=== PATIENT | male | born 1980 | race American Indian/Alaskan Native ===

== ENCOUNTER 2017-10-05 02:06 | Emergency (ER) | payer OTHER ==
--- NOTE | 2017-10-05 08:02 | Emergency Department Report ---
- General Chief complaint: Extremity Injury, Lower Stated complaint: RT LEG PAIN Time Seen by Provider: 10/05/17 07:49 Source: patient Mode of arrival: Ambulatory Limitations: No Limitations - History of Present Illness Initial comments: Patient reports that he was injured on the job. He states his shoes were too small and causes right leg and foot to start for 2 days now. Patient's reporting that he has infection of the bottom of his right foot and his big toe. Reports pain is 2/10 and hurts. Worse with walking and touch. He does have diabetes with neuropathy but he did not take his blood sugar today and he is on metformin. No medication taken for pain. Denies any fever. MD complaint: other (woundand pain to right foot) Onset/Timin -: days(s) Tetanus Up to Date: yes Location: R foot Severity: moderate Severity scale (0 -10): 2 Quality: other (sore) Consistency: constant Improves with: none Worsens with: palpation, movement Context: other (possible infection) Associated symptoms: athralgias Treatments Prior to Arrival: other - Related Data Previous Rx's Medication Instructions Recorded Last Taken Type Clindamycin [Clindamycin CAP] 300 mg PO Q8H 10 Days #30 cap 10/05/17 Unknown Rx traMADol [Ultram] 50 mg PO Q6HR PRN #12 tablet 10/05/17 Unknown Rx Allergies Allergy/AdvReac Type Severity Reaction Status Date / Time No Known Allergies Allergy Unverified 10/05/17 02:57 Abscess Boil HPI - HPI Chief Complaint: Extremity Injury, Lower Stated Complaint: RT LEG PAIN Time Seen by Provider: 10/05/17 07:49 Home Medications: Previous Rx's Medication Instructions Recorded Last Taken Type Clindamycin [Clindamycin CAP] 300 mg PO Q8H 10 Days #30 cap 10/05/17 Unknown Rx traMADol [Ultram] 50 mg PO Q6HR PRN #12 tablet 10/05/17 Unknown Rx Allergies/Adverse Reactions: Allergies Allergy/AdvReac Type Severity Reaction Status Date / Time No Known Allergies Allergy Unverified 10/05/17 02:57 ED Review of Systems ROS: Stated complaint: RT LEG PAIN Other details as noted in HPI Constitutional: denies: chills, fever Respiratory: denies: cough, shortness of breath, SOB with exertion, SOB at rest , wheezing Cardiovascular: denies: chest pain, palpitations, dyspnea on exertion, edema, syncope Gastrointestinal: denies: abdominal pain, nausea, diarrhea, hematemesis Genitourinary: denies: urgency, dysuria, hematuria Musculoskeletal: denies: back pain, joint swelling, arthralgia Skin: other (reports that he has ulcer to right foot and pain to right leg and foot.) Neurological: denies: headache, weakness, paresthesias ED Past Medical Hx - Past Medical History Previous Medical History?: Yes Hx Diabetes: Yes - Surgical History Past Surgical History?: No - Family History Family history: no significant - Social History Smoking Status: Current Every Day Smoker Substance Use Type: None - Medications Home Medications: Home Medications Medication Instructions Recorded Confirmed Last Taken Type Clindamycin [Clindamycin CAP] 300 mg PO Q8H 10 Days #30 cap 10/05/17 Unknown Rx traMADol [Ultram] 50 mg PO Q6HR PRN #12 tablet 10/05/17 Unknown Rx ED Physical Exam - General Limitations: No Limitations General appearance: alert, in no apparent distress - Head Head exam: Present: atraumatic, normocephalic, normal inspection - Eye Eye exam: Present: normal appearance, PERRL, EOMI Pupils: Present: normal accommodation - ENT ENT exam: Present: normal exam, normal orophraynx, mucous membranes moist - Neck Neck exam: Present: normal inspection, tenderness - Respiratory Respiratory exam: Present: normal lung sounds bilaterally. Absent: respiratory distress, chest wall tenderness - Cardiovascular Cardiovascular Exam: Present: regular rate, normal heart sounds - GI/Abdominal GI/Abdominal exam: Present: soft, normal bowel sounds. Absent: distended, tenderness, guarding, rebound, rigid - Extremities Exam Extremities exam: Present: normal inspection, full ROM, normal capillary refill , other (No cce. + 2 pulses in all extremities, no neurovascular compromise except a plantar area of foot with stage II ulcer to great toe with granulation tissue surrounded. There is also another ulcer to right first and second metatarsal area plantar aspect at stage II.). Absent: tenderness, pedal edema, joint swelling, calf tenderness - Back Exam Back exam: Present: normal inspection, full ROM, CVA tenderness (L). Absent: tenderness, muscle spasm, paraspinal tenderness, vertebral tenderness, rash noted - Neurological Exam Neurological exam: Present: alert, normal gait, reflexes normal. Absent: motor sensory deficit - Psychiatric Psychiatric exam: Present: normal affect, normal mood - Skin Skin exam: Present: warm, dry, erythema, other (ulcer). Absent: intact - Expanded Skin Exam Expanded Type of lesion: Present: other (foot ulcer stage II) Distribution of rash: LLE (right foot, plantar) Description of rash: Present: size (2 ulcers. #1 5 cm right great toe plantar aspect no drainage. No necrosis noted. Surrounding granulation tissue. #2 4 cm right foot ulcer at first and second metatarsal bone area. Surrounding granulation tissue and no necrosis noted), tenderness, erythematous, swelling, discharge (scant drainage noted). Absent: blisters, confluent, petechial, fluctuant, indurated ED Course Vital Signs 10/05/17 02:57 Temperature 99.1 F Pulse Rate 90 Respiratory 18 Rate Blood Pressure 103/70 O2 Sat by Pulse 100 Oximetry - Reevaluation(s) Reevaluation #1: 10/05/17 09:21 Patient's receive 600 mg of clindamycin by mouth. Wound care done to right foot ulcer. Area cleansed with saline and wet to dry dressing placed. Patient was sugar is 512 therefore he will be treated with normal saline IV fluid and given insulin. Plan to repeat insulin. Patient is stable and is in no distress and reported that he had a bottle of lemonade prior to blood draw. Vital signs stable afebrile. Reevaluation #2: 10/05/17 10:36 Glucose 307 after 2 L of normal saline ED Medical Decision Making - Lab Data Result diagrams: 10/05/17 08:22 10/05/17 08:22 Lab Results 10/05/17 10/05/17 Range/Units 08:22 08:22 WBC 7.8 (4.5-11.0) K/mm3 RBC 4.12 (3.65-5.03) M/mm3 Hgb 11.7 L (11.8-15.2) gm/dl Hct 35.0 L (35.5-45.6) % MCV 85 (84-94) fl MCH 28 (28-32) pg MCHC 33 (32-34) % RDW 13.4 (13.2-15.2) % Plt Count 330 (140-440) K/mm3 Lymph % (Auto) 29.7 (13.4-35.0) % [place] % (Auto) 6.7 (0.0-7.3) % Eos % (Auto) 1.9 (0.0-4.3) % Baso % (Auto) 0.3 (0.0-1.8) % Lymph # 2.3 (1.2-5.4) K/mm3 [place] # 0.5 (0.0-0.8) K/mm3 Eos # 0.2 (0.0-0.4) K/mm3 Baso # 0.0 (0.0-0.1) K/mm3 Seg Neutrophils % 61.4 (40.0-70.0) % Seg Neutrophils # 4.8 (1.8-7.7) K/mm3 Sodium 133 L (137-145) mmol/L Potassium 4.2 (3.6-5.0) mmol/L Chloride 95.0 L (98-107) mmol/L Carbon Dioxide 27 (22-30) mmol/L Anion Gap 15 mmol/L BUN 10 (9-20) mg/dL Creatinine 0.7 L (0.8-1.5) mg/dL Estimated GFR > 60 ml/min BUN/Creatinine Ratio 14 % Calcium 9.1 (8.4-10.2) mg/dL - Radiology Data Radiology results: report reviewed Pt had x-ray of right foot 3 views which was dictated by radiologist and report reviewed by myself. Please see details below. Patient: CHALINO SARGENT MR#: [id number] : 1980 Acct:[id number] Age/Sex: 37 / M ADM Date: 10/05/17 Loc: ED Attending Dr: Ordering Physician: CHAPIS ROMO Date of Service: 10/05/17 Procedure(s): XR foot 3+V RT Accession Number(s): [id number] cc: CHAPIS ROMO Fluoro Time In Minutes: RIGHT FOOT, 3 VIEWS: History: Pain, right great toe ulcer. No comparison. There is moderate soft tissue swelling of the great toe. Areas of ulceration are identified medially at the level of the great toe and first metatarsal head. There is no evidence for periostitis or bony destruction to suggest osteomyelitis. No fracture or significant joint pathology. IMPRESSION: Soft tissue swelling and ulceration consistent with a cellulitis. No findings to suggest osteomyelitis on x-ray. If further evaluation is needed, MRI with contrast or triple phase bone scan could prove useful. Transcribed By: TTR Dictated By: CHALINO COX JR, MD Electronically Authenticated By: CHALINO COX JR, MD Signed Date/Time: 10/05/17847 DD/ 5 TD/TT: 10/05/17847 - Medical Decision Making This is 37-year-old male here report that he has ulcer and his right great toe and also right foot at the bottom. He says it has been going on for 2 days. Patient is a diabetic and he said he has neuropathy and takes metformin. Pain is minimal. Denies any fever . He did not take his blood sugar today I saw and examined patient and patient was found to have stage II ulcers to the plantar aspect of right foot. He has a 4 cm ulcer to his right great toe and 5 cm ulcer to right first and second metatarsal bone area. Minimal tenderness to palpate. No odor. No drainage noted. Patient with surrounding in any relation tissue, +2 pedal pulses. No neurovascular compromise and otherwise all other physical findings were normal. X-ray of right foot 3 views dictated by radiologist and report reviewed by myself. She will cellulitis with no evidence of osteomyelitis. No acute fracture. CBC stable except for slight shift to the left , CMP stable exceptional inpatient blood glucose is 512 and he said he had just drank a soda prior to going into room and have it is lab work drawn. Urinalysis greater than 500 glucose and no ketones.. X-ray and left accident patient along with diagnosis and treatment plan and the voice understanding. She received 2 L of normal saline emergency room. Repeat blood sugar is at 307. he also was given Unasyn 3.375 g in emergency room IV for cellulitis. He was given clindamycin 600 mg by mouth. Patient instructed to keep affected area clean and dry, dressing done to right foot. Td up-to-date. Vital signs stable, afebrile patient's that he feels good and is ready to go home. I instructed him that he needs to keep a record of his blood glucose and take his medication as prescribed by his doctor. I also asked him that he needs to follow-up with private medical center or his primary care physician in 3 days. He voiced understanding. Says Omnicef condition with prescription for clindamycin, and to follow-up with also wound care for stage II ulcer, right foot Critical care attestation.: If time is entered above; I have spent that time in minutes in the direct care of this critically ill patient, excluding procedure time. ED Disposition Clinical Impression: Cellulitis of plantar aspect of foot, Arthralgia of foot, right Decubitus ulcer of foot, stage 2 Qualifiers: Laterality: right Qualified Code(s): L89.892 - Pressure ulcer of other site, stage 2 Disposition: DC-01 TO HOME OR SELFCARE Is pt being admited?: No Does the pt Need Aspirin: No Condition: Stable Instructions: Arthralgia (ED), Acute Wound Care (ED), Diabetic Foot Ulcers (ED) Additional Instructions: Follow-up with wound care Center as discussed Keep affected area clean and dry Wet-to-dry dressing as discussed Follow-up primary care physician if he do not have one he can follow-up at some outside Medical Center in 3 days Can take Ultram for pain but please do not drive or operate heavy machinery as this medication causes drowsiness Prescriptions: Clindamycin [Clindamycin CAP] 300 mg PO Q8H 10 Days #30 cap traMADol [Ultram] 50 mg PO Q6HR PRN #12 tablet PRN Reason: Pain Referrals: [facility] [Outside] - 10/08/17 PRIMARY CARE, [Primary Care Provider] - 10/08/17 [facility] [Outside] - 10/08/17 Forms: Work/School Release Form(ED)
[2017-10-05 08:50] LABS: BUN/Creatinine Ratio 14; Blood Urea Nitrogen 10 mg/dL (9-20); Calcium 9.1 mg/dL (8.4-10.2); Hemolysis Index 4
--- NOTE | 2017-10-05 08:54 | XRay Report ---
RIGHT FOOT, 3 VIEWS: History: Pain, right great toe ulcer. No comparison. There is moderate soft tissue swelling of the great toe. Areas of ulceration are identified medially at the level of the great toe and first metatarsal head. There is no evidence for periostitis or bony destruction to suggest osteomyelitis. No fracture or significant joint pathology. IMPRESSION: Soft tissue swelling and ulceration consistent with a cellulitis. No findings to suggest osteomyelitis on x-ray. If further evaluation is needed, MRI with contrast or triple phase bone scan could prove useful.
[2017-10-05 08:55] LABS: Basophils % (Auto) 0.3 % (0.0-1.8); Eosinophils # (Auto) 0.2 K/mm3 (0.0-0.4); Eosinophils % (Auto) 1.9 % (0.0-4.3); Hemoglobin 11.7 gm/dl (11.8-15.2); Lymphocytes # (Auto) 2.3 K/mm3 (1.2-5.4); Lymphocytes % (Auto) 29.7 % (13.4-35.0); Mean Corpuscular HGB Conc 33 % (32-34); Mean Corpuscular Hemoglobin 28 pg (28-32); Mean Corpuscular Volume 85 fl (84-94); Monocytes # (Auto) 0.5 K/mm3 (0.0-0.8); Monocytes % (Auto) 6.7 % (0.0-7.3); Platelet Count 330 K/mm3 (140-440); Red Blood Count 4.12 M/mm3 (3.65-5.03); Red Cell Distribution Width 13.4 % (13.2-15.2)
[2017-10-05] MEDS ORDERED: CLEOCIN PO ONE (09:02)
[2017-10-05] MEDS ORDERED: NACL 0.9% 1000 ML 1,000 ML IV ONE ×2 (09:30→10:08)
[2017-10-05] MEDS ORDERED: HumuLIN R IV ONE (09:44)
[2017-10-05] MEDS ORDERED: ZOSYN/NS 4.5GM/100ML 4.5 GM/100 ML VIAL IV SCH (10:00)
[2017-10-05 10:08] LABS: Bilirubin,Urine NEG (Negative); Blood,Urine NEG (Negative); Color,Urine Colorless (Yellow); Protein,Urine <15 mg/dL mg/dL (Negative); Urobilinogen,Urine < 2.0 mg/dL (<2.0)
[2017-10-05 11:44] VITALS: BP 122/74
== END 2017-10-05 11:43 | disposition home or self-care (01) ==
LOC: ED 02:06
DX: L03.115 Cellulitis of right lower limb (principal); E11.621 Type 2 diabetes mellitus with foot ulcer; L89.892 Pressure ulcer of other site, stage 2; M79.671 Pain in right foot; Z79.899 Other long term (current) drug therapy
CPT/HCPCS: 36415; 73630; 80048; 81001; 82962; 85025; 96374; 96375; 99284; J2543; 96361; J1815

== ENCOUNTER 2017-10-10 07:58 | Outpatient (CLI) | payer OTHER ==
[2017-10-10] MEDS ORDERED: XYLOCAINE TOPICAL 4% TP ONE ×2 (08:17→10:05)
[2017-10-10] MEDS ORDERED: SILVER NITRATE TP ONE ×2 (09:11→10:06)
== END 2017-10-10 07:59 | disposition home or self-care (01) ==
LOC: WOUND 07:58
PROVIDERS: ATTEND Surgery
DX: E11.621 Type 2 diabetes mellitus with foot ulcer (principal); L97.512 Non-pressure chronic ulcer of other part of right foot with fat layer exposed; L89.899 Pressure ulcer of other site, unspecified stage; L84 Corns and callosities; F17.210 Nicotine dependence, cigarettes, uncomplicated
CPT/HCPCS: 11042; G0463; 99215

== ENCOUNTER 2017-10-12 08:06 | Outpatient (CLI) | payer OTHER | END 2017-10-12 08:07 | disposition home or self-care (01) | LOC: VAS 08:06 | PROVIDERS: ATTEND Surgery | DX: E11.621 Type 2 diabetes mellitus with foot ulcer (principal); L97.512 Non-pressure chronic ulcer of other part of right foot with fat layer exposed; L84 Corns and callosities; F17.210 Nicotine dependence, cigarettes, uncomplicated | CPT/HCPCS: 36415; 83036 ==

== ENCOUNTER 2017-10-28 17:26 | Emergency (ER) | payer OTHER ==
[2017-10-28 19:06] VITALS: BP 126/61
--- NOTE | 2017-10-29 00:28 | Emergency Department Report ---
- General Chief Complaint: Extremity Problem,Nontraumatic Stated Complaint: RT HAND BLISTERS/PAIN Time Seen by Provider: 10/29/17 00:25 Source: patient Mode of arrival: Ambulatory Limitations: No Limitations - History of Present Illness Initial Comments: 37-year-old -[place] male presents to the emergency room for complaint of blisters to his right hand. He reports a blister on his thumb third and fourth digit. Patient reports he was at work using a high-power hose water which had heated up to extreme temperatures and obtained blisters on his hand. Patient reports the pain is minimum. Patient Tetanus UTD: Yes - Related Data Previous Rx's Medication Instructions Recorded Last Taken Type Clindamycin [Clindamycin CAP] 300 mg PO Q8H 10 Days #30 cap 10/05/17 Unknown Rx traMADol [Ultram] 50 mg PO Q6HR PRN #12 tablet 10/05/17 Unknown Rx Allergies Allergy/AdvReac Type Severity Reaction Status Date / Time No Known Allergies Allergy Unverified 10/05/17 02:57 ED Review of Systems ROS: Stated complaint: RT HAND BLISTERS/PAIN Other details as noted in HPI ED Past Medical Hx - Past Medical History Hx Diabetes: Yes - Surgical History Past Surgical History?: No - Social History Smoking Status: Current Some Day Smoker Substance Use Type: Marijuana - Medications Home Medications: Home Medications Medication Instructions Recorded Confirmed Last Taken Type Clindamycin [Clindamycin CAP] 300 mg PO Q8H 10 Days #30 cap 10/05/17 Unknown Rx traMADol [Ultram] 50 mg PO Q6HR PRN #12 tablet 10/05/17 Unknown Rx ED Physical Exam - General Limitations: No Limitations General appearance: alert, in no apparent distress - Head Head exam: Present: atraumatic, normocephalic - Neurological Exam Neurological exam: Present: alert, oriented X3 - Psychiatric Psychiatric exam: Present: normal affect, normal mood - Expanded Skin Exam Expanded Description of rash: Present: blisters (right hand thumb, 4th and 5th digit) ED Course Vital Signs 10/28/17 10/29/17 19:01 01:10 Temperature 97.8 F Pulse Rate 83 60 Respiratory 16 16 Rate Blood Pressure 126/61 O2 Sat by Pulse 100 99 Oximetry ED Medical Decision Making - Medical Decision Making Patient has been evaluated by this provider fast track. Discussed patient to keep blisters intact. Informed patient he can take [id number] Tylenol or Motrin for pain management if he has any. Referral patient to [facility] for evaluation. patient verbalized understanding Diagnosis with blisters on right hand Critical care attestation.: If time is entered above; I have spent that time in minutes in the direct care of this critically ill patient, excluding procedure time. ED Disposition Clinical Impression: Blister of hand Qualifiers: Encounter type: initial encounter Laterality: right Qualified Code(s): S60.521A - Blister (nonthermal) of right hand, initial encounter Disposition: TO HOME OR SELFCARE Is pt being admited?: No Does the pt Need Aspirin: No Condition: Stable Instructions: Blister (ED) Additional Instructions: Please is take [id number] pain medication as needed. Please keep your blisters intact as much as possible. Follow-up with [facility] as needed. Referrals: PRIMARY CARE, [Primary Care Provider] - 3-5 Days [facility] [Outside] - 3-5 Days Forms: Work/School Release Form(ED)
== END 2017-10-29 01:10 | disposition home or self-care (01) ==
LOC: ED 17:26
DX: S60.521A Blister (nonthermal) of right hand, initial encounter (principal); E11.9 Type 2 diabetes mellitus without complications; F17.200 Nicotine dependence, unspecified, uncomplicated; X11.8XXA Contact with other hot tap-water, initial encounter; Y93.89 Activity, other specified; Y92.89 Other specified places as the place of occurrence of the external cause; Y99.8 Other external cause status
CPT/HCPCS: 99282

== ENCOUNTER 2020-05-03 12:48 | Emergency (ER) | payer SELFPAY ==
[2020-05-03] MEDS ORDERED: IBUPROFEN 600 MG TAB PO ONE (13:24)
--- NOTE | 2020-05-03 13:25 | Emergency Department Report ---
ED Headache HPI - General Chief Complaint: Headache Stated Complaint: HEADACHE Time Seen by Provider: 05/03/20 13:17 Source: patient Exam Limitations: no limitations - History of Present Illness Initial Comments: 40-year-old male with a past medical history of diabetes and tobacco use presents to the ER today with complaints of headache. Patient states that headache is mainly on the left side of his head. He describes as a pressure pain. He states that it started about 2 months ago, is states that has been off and on but in the past couple weeks he has noticed that it is been more constant. He denies any head injury when he first started. He states that he has been taking Tylenol extra strength which does not seem to relieve his pain but it comes back. He is unable to say what makes it worse. He reports mild nasal congestion and "a little" blurry vision but he denies any dizziness, speech changes, neck pain, chest pain, shortness of breath, focal weakness, num bness, tingling or any other symptoms at this time. His blood pressure was noted to be elevated at triage but he denies any history of hypertension. Timing/Duration: other (2 mthd) Allergies/Adverse Reactions: Allergies No Known Allergies Allergy (Unverified 10/05/17 02:57) Home Medications: Ambulatory Orders Clindamycin [Clindamycin CAP] 300 mg PO Q8H 10 Days #30 cap 10/05/17 traMADoL [Ultram] 50 mg PO Q6HR PRN #12 tablet 10/05/17 Amlodipine Besylate [Norvasc] 5 mg PO DAILY #30 tablet 05/03/20 ED Review of Systems ROS: Stated complaint: HEADACHE Other details as noted in HPI Comment: All other systems reviewed and negative Constitutional: denies: chills, fever Eyes: denies: eye pain, eye discharge, vision change ENT: congestion Cardiovascular: denies: chest pain, palpitations Endocrine: no symptoms reported Gastrointestinal: denies: abdominal pain, nausea, diarrhea Genitourinary: denies: urgency, dysuria, frequency, hematuria, discharge, testicular pain, testicular mass Musculoskeletal: denies: back pain, joint swelling, arthralgia Skin: denies: rash, lesions, change in color, change in hair/nails Neurological: headache. denies: weakness, numbness, paresthesias, confusion, a bnormal gait Psychiatric: denies: anxiety, depression Hematological/Lymphatic: denies: easy bleeding, easy bruising ED Past Medical Hx - Past Medical History Previous Medical History?: Yes Hx Diabetes: Yes - Surgical History Past Surgical History?: No - Social History Smoking Status: Current Every Day Smoker Substance Use Type: None - Medications Home Medications: Home Medications Medication Instructions Recorded Confirmed Last Taken Type Clindamycin [Clindamycin CAP] 300 mg PO Q8H 10 Days #30 cap 10/05/17 Unknown Rx traMADoL [Ultram] 50 mg PO Q6HR PRN #12 tablet 10/05/17 Unknown Rx Amlodipine Besylate [Norvasc] 5 mg PO DAILY #30 tablet 05/03/20 Unknown Rx ED Physical Exam - General Limitations: No Limitations General appearance: alert, in no apparent distress - Head Head exam: Present: atraumatic, normocephalic, normal inspection - Eye Eye exam: Present: normal appearance, PERRL, EOMI Pupils: Present: normal accommodation - ENT ENT exam: Present: normal exam, mucous membranes moist - Neck Neck exam: Present: normal inspection, full ROM - Respiratory Respiratory exam: Present: normal lung sounds bilaterally. Absent: respiratory distress - Cardiovascular Cardiovascular Exam: Present: regular rate, normal rhythm, normal heart sounds - GI/Abdominal GI/Abdominal exam: Present: soft. Absent: distended, tenderness, guarding, rebound - Neurological Exam Neurological exam: Present: alert, oriented X3, CN II-XII intact, normal gait - Psychiatric Psychiatric exam: Present: normal affect, normal mood - Skin Skin exam: Present: intact ED Course Vital Signs 05/03/20 05/03/20 12:50 15:32 Temperature 98.8 F Pulse Rate 91 H 77 Respiratory 14 17 Rate Blood Pressure 164/97 Blood Pressure 161/88 [Right] O2 Sat by Pulse 100 100 Oximetry ED Medical Decision Making - Lab Data Result diagrams: 05/03/20 13:30 05/03/20 13:30 - Radiology Data Radiology results: report reviewed Patient: AVILA SARGENT MR#: Castillo [id number] : 1980 Acct:[id number] Age/Sex: 40 / M ADM Date: 05/03/20 Loc: ED Attending Dr: Ordering Physician: KRYSTA MCGINNIS Date of Service: 05/03/20 Procedure(s): CT head/brain wo con Accession Number(s): [id number] cc: KRYSTA MCGINNIS CT HEAD WITHOUT CONTRAST INDICATION / CLINICAL INFORMATION: Left-sided headache for 2 months. TECHNIQUE: Axial imaging performed from the skull apex through the skull base without the use of contrast. Sagittal and coronal reformatted images. All CT scans at this loca tion are performed using CT dose reduction for ALARA by means of automated exposure control. COMPARISON: None available. FINDINGS: CEREBRAL PARENCHYMA: No significant abnormality. No acute territorial infarct. HEMORRHAGE: None. EXTRA-AXIAL SPACES: Normal in size and morphology for the patient's age. VENTRICULAR SYSTEM: Normal in size and morphology for the patient's age. MIDLINE SHIFT OR HERNIATION: None. CEREBELLUM / BRAINSTEM: No significant abnormality. CALVARIUM: No significant abnormality. ORBITS: Normal as visualized. PARANASAL SINUSES / MASTOID AIR CELLS: Normal as visualized. SOFT TISSUES of HEAD: No significant abnormality. ADDITIONAL FINDINGS: None. IMPRESSION: No acute intracranial abnormality. Signer Name: Avila Brewer Jr, MD Signed: 05/03/2020 2:00 PM Workstation Name: [id number] Transcribed By: TTR Dictated By: AVILA BREWER JR, MD Electronically Authenticated By: AVILA BREWER JR, MD Signed Date/Time: 05/03/20 1400 DD/ 1358 TD/TT: - Medical Decision Making Labs reviewed, patient blood sugar is elevated at 308 but otherwise labs are normal, no evidence of DKA. Patient does admit that he has not taken any of his diabetic medications today. Head CT negative for anything acute. Patient currently resting comfortably, is not in any acute distress. He is alert, talkative, interactive, with normal mental status and is neurologically intact with a normal gait in the ER. The history, exam, diagnostic testing and the patient's current condition does not suggest meningitis, stroke, sepsis, subarachnoid hemorrhage, intracranial bleeding, encephalitis, temporal arteritis or other significant pathology to warrant further testing, continued ED treatment, admission, neurological consultation or other specialist evaluation at this point. Repeat blood pressure is still elevated at 160 systolic. Remaining vitals normal. Discussed lab results and CT results with patient. Discussed concern for HTN with patient and that will start on low dose norvasc but it is important that he folows up with PCP listed on d/c instructions for continued monitoring of his blood pressure. Patient expressed understanding of instructions and agreed with plan. Patient stable at time of d/c. Critical care attestation.: If time is entered above; I have spent that time in minutes in the direct care of this critically ill patient, excluding procedure time. ED Disposition Clinical Impression: Headache, Elevated blood pressure reading Disposition: TO HOME OR SELFCARE Is pt being admited?: No Does the pt Need Aspirin: No Condition: Stable Instructions: General Headache Without Cause, Hypertension, Adult Additional Instructions: Take the Norvasc as prescribed. Check your blood pressure before your medication and about 1-2 hrs after taking your meds. Keep log of your blood pressure readings. You can take the Tylenol and/or ibuprofen as needed for pain. It is important that you follow-up with the primary care doctor as listed on your discharge instructions for continued monitoring of your blood pressure and your blood sugar. Return to the ER if your symptoms changes or worsens in any way. Prescriptions: Amlodipine Besylate [Norvasc] 5 mg PO DAILY #30 tablet Referrals: JUDY BLUE MD [Staff Physician] - 3-5 Days Forms: Work/School Release Form(ED) Time of Disposition: 16:04
--- NOTE | 2020-05-03 14:04 | Cat Scan Report ---
CT HEAD WITHOUT CONTRAST INDICATION / CLINICAL INFORMATION: Left-sided headache for 2 months. TECHNIQUE: Axial imaging performed from the skull apex through the skull base without the use of cont rast. Sagittal and coronal reformatted images. All CT scans at this location are performed using CT dose reduction for ALARA by means of automated exposure control. COMPARISON: None available. FINDINGS: CEREBRAL PARENCHYMA: No significant abnormality. No acute territorial infarct. HEMORRHAGE: None. EXTRA-AXIAL SPACES: Normal in size and morphology for the patient's age. VENTRICULAR SYSTEM: Normal in size and morphology for the patient's age. MIDLINE SHIFT OR HERNIATION: None. CEREBELLUM / BRAINSTEM: No significant abnormality. CALVARIUM: No significant abnormality. ORBITS: Normal as visualized. PARANASAL SINUSES / MASTOID AIR CELLS: Normal as visualized. SOFT TISSUES of HEAD: No significant abnormality. ADDITIONAL FINDINGS: None. IMPRESSION: No acute intracranial abnormality. Signer Name: Avila Brewer Jr, MD Signed: 05/03/2020 2:00 PM Workstation Name: [id number]
[2020-05-03 14:11] LABS: Basophils % (Auto) 0.4 % (0.0-1.8); Eosinophils # (Auto) 0.1 K/mm3 (0.0-0.4); Hemoglobin 10.4 gm/dl (11.8-15.2); Lymphocytes # (Auto) 1.5 K/mm3 (1.2-5.4); Lymphocytes % (Auto) 24.3 % (13.4-35.0); Mean Corpuscular HGB Conc 34 % (32-34); Mean Corpuscular Volume 83 fl (84-94); Monocytes # (Auto) 0.4 K/mm3 (0.0-0.8); Monocytes % (Auto) 6.8 % (0.0-7.3); Platelet Count 290 K/mm3 (140-440); Red Blood Count 3.74 M/mm3 (3.65-5.03); Red Cell Distribution Width 13.5 % (13.2-15.2)
[2020-05-03 14:37] LABS: Alanine Aminotransferase 20 units/L (7-56); Albumin 3.3 g/dL (3.9-5); BUN/Creatinine Ratio 14; Blood Urea Nitrogen 15 mg/dL (9-20); Calcium 8.6 mg/dL (8.4-10.2); Hemolysis Index 30
[2020-05-03 15:33] VITALS: BP 161/88
== END 2020-05-03 16:17 | disposition home or self-care (01) ==
LOC: ED 12:48
DX: R03.0 Elevated blood-pressure reading, without diagnosis of hypertension (principal); R51.9 Headache, unspecified; E11.9 Type 2 diabetes mellitus without complications; F17.200 Nicotine dependence, unspecified, uncomplicated; Z79.899 Other long term (current) drug therapy
CPT/HCPCS: 36415; 70450; 80053; 85025

== ENCOUNTER 2020-07-08 17:39 | Inpatient (IN) | payer OTHER ==
[2020-07-08 20:52] LABS: Basophils % (Auto) 0.3 % (0.0-1.8); Eosinophils # (Auto) 0.2 K/mm3 (0.0-0.4); Eosinophils % (Auto) 1.7 % (0.0-4.3); Hematocrit 28.5 % (35.5-45.6); Hemoglobin 9.5 gm/dl (11.8-15.2); Lymphocytes # (Auto) 1.8 K/mm3 (1.2-5.4); Lymphocytes % (Auto) 13.6 % (13.4-35.0); Mean Corpuscular HGB Conc 33 % (32-34); Mean Corpuscular Volume 84 fl (84-94); Monocytes # (Auto) 1.1 K/mm3 (0.0-0.8); Monocytes % (Auto) 8.3 % (0.0-7.3); Platelet Count 559 K/mm3 (140-440); Red Blood Count 3.41 M/mm3 (3.65-5.03)
[2020-07-08 21:01] LABS: Alanine Aminotransferase 12 units/L (7-56); BUN/Creatinine Ratio 12; Blood Urea Nitrogen 15 mg/dL (9-20); Hemolysis Index 10
--- NOTE | 2020-07-08 21:05 | XRay Report ---
HISTORY:Diabetic foot ulcer - R/O Osteomyelitis COMPARISON: None. TECHNIQUE: AP lateral and obliques views were obtained FINDINGS: Bones: No fracture or dislocation. Joint spaces: Maintained. Soft tissues: No significant abnormality. Additional findings: None. IMPRESSION: 1. No significant abnormality. If osteomyelitis is a concern recommend MR for further evaluation Signer Name: Patel Adrian MD Signed: 07/08/2020 9:01 PM Workstation Name: [id number]
[2020-07-08] MEDS ORDERED: SODIUM CHLORIDE 0.9% 1000 ML 1,000 ML IV ONE ×2 (22:03)
[2020-07-08] MEDS ORDERED: PIPERACIL/TAZOBACTA 4.5/NS 100 4.5 GM/100 ML VIAL IV ONE (22:04)
[2020-07-08] MEDS ORDERED: HYDROcodone/ACETAMINOPHEN 5-325 MG TAB PO ONE (22:05)
[2020-07-08] MEDS ORDERED: ONDANSETRON 4 MG ODT TAB PO ONE (22:05)
--- NOTE | 2020-07-09 03:32 | Event Note ---
ED Screening Note Date of service: 07/08/20 Time: 20:20 ED Screening Note: Patient is a 40-year-old -Mexican male with a history of [id number]-muqwwqcee diabetes, hypertension and hyperlipidemia and was noncompliant with his medications presents to the ED with complaint of acute onset persistent severe right foot pain due to ulcerated wound with thick purulent discharge for the 1 week, worse in the last 2 days. Patient states that he has not been able to wear shoes or bear weight on the right foot because of worsening pain and worsening purulent discharge from the right foot ulcer. Patient states that he does not take his diabetes medications as he should and also states that he does not remember when he last checked his blood sugar. Patient denies fall, traumatic injury, nausea, vomiting, fever, chills, numbness and tingling or weakness of right foot or right leg, dizziness, abdominal pain, back pain, chest pain or shortness of breath. This initial assessment/diagnostic orders/clinical plan/treatment(s) is/are subject to change based on patients health status, clinical progression and re- assessment by fellow clinical providers in the ED. Further treatment and workup at subsequent clinical providers discretion. Patient/guardian urged not to elope from the ED as their condition may be serious if not clinically assessed and managed. Initial orders include: CBC, CMP, foot x-ray, lactic acid, 2 L of normal saline IV; Zosyn 4.5 g IV
[2020-07-09] MEDS ORDERED: INSULIN REGULAR, HUMAN 100 UNITS/1 ML IV ONE (04:30)
--- NOTE | 2020-07-09 04:30 | Emergency Department Report ---
ED General Adult HPI - General Chief complaint: Extremity Injury, Lower Stated complaint: RT FOOT SWOLLEN/LEAKING POST/BLOOD PUI?: No Time Seen by Provider: 07/09/20 04:01 Source: patient Mode of arrival: Stretcher Limitations: No Limitations - History of Present Illness Initial comments: Patient is a 40-year-old male who presents emergency room with complaints of right lateral foot wound has been going on for 2 days. Patient states the wound is worsening. Patient states he is having pain. Patient states he has a history of diabetes hypertension. Patient explains to be taking Metformin and insulin. Patient patient is noncompliant with his medication. He states he does not have a primary care. Patient states he has had ulcers in the past secondary to his diabetes. Patient states he has a history. Patient states the skin is starting to slough off his dorsal right foot and has a purulent discharge. Patient denies fever and chills. Patient states he does not have neuropathy. Patient denies recent travel. Patient denies recent international travel. Patient denies exposure to the novel coronavirus. Patient denies sick contacts. Patient denies fever and chills. Patient denies cough. Patient denies d iarrhea. Patient denies coming in contact with anybody with symptoms of the novel coronavirus. -: Sudden Severity scale (0 -10): 0 Consistency: constant Improves with: rest Worsens with: movement Associated Symptoms: denies: confusion, chest pain, cough, diaphoresis, fever/chills, headaches, loss of appetite, malaise, nausea/vomiting, rash, seiz ure, shortness of breath, syncope, weakness Treatments Prior to Arrival: none - Related Data Previous Rx's Medication Instructions Recorded Last Taken Type Clindamycin [Clindamycin CAP] 300 mg PO Q8H 10 Days #30 cap 10/05/17 Unknown Rx traMADoL [Ultram] 50 mg PO Q6HR PRN #12 tablet 10/05/17 Unknown Rx Amlodipine Besylate [Norvasc] 5 mg PO DAILY #30 tablet 05/03/20 Unknown Rx Allergies Allergy/AdvReac Type Severity Reaction Status Date / Time No Known Allergies Allergy Unverified 10/05/17 02:57 ED Review of Systems ROS: Stated complaint: RT FOOT SWOLLEN/LEAKING POST/BLOOD Other details as noted in HPI Constitutional: denies: chills, fever Eyes: denies: eye pain, eye discharge, vision change ENT: denies: ear pain, throat pain Respiratory: denies: cough, shortness of breath, wheezing Cardiovascular: denies: chest pain, palpitations Endocrine: no symptoms reported Gastrointestinal: denies: abdominal pain, nausea, diarrhea Genitourinary: denies: urgency, dysuria Musculoskeletal: denies: back pain, joint swelling, arthralgia Skin: as per HPI, lesions. denies: rash Neurological: denies: headache, weakness, paresthesias Psychiatric: denies: anxiety, depression Hematological/Lymphatic: denies: easy bleeding, easy bruising ED Past Medical Hx - Past Medical History Previous Medical History?: Yes Hx Hypertension: Yes Hx Diabetes: Yes - Surgical History Past Surgical History?: No - Family History Family history: no significant - Social History Smoking Status: Current Every Day Smoker Substance Use Type: None - Medications Home Medications: Home Medications Medication Instructions Recorded Confirmed Last Taken Type Clindamycin [Clindamycin CAP] 300 mg PO Q8H 10 Days #30 cap 10/05/17 Unknown Rx traMADoL [Ultram] 50 mg PO Q6HR PRN #12 tablet 10/05/17 Unknown Rx Amlodipine Besylate [Norvasc] 5 mg PO DAILY #30 tablet 05/03/20 Unknown Rx ED Physical Exam - General Limitations: No Limitations General appearance: alert, in no apparent distress - Head Head exam: Present: atraumatic, normocephalic - Eye Eye exam: Present: normal appearance - ENT ENT exam: Present: mucous membranes moist - Neck Neck exam: Present: normal inspection - Respiratory Respiratory exam: Present: normal lung sounds bilaterally. Absent: respiratory distress - Cardiovascular Cardiovascular Exam: Present: regular rate, normal rhythm. Absent: systolic murmur, diastolic murmur, rubs, gallop - GI/Abdominal GI/Abdominal exam: Present: soft, normal bowel sounds - Rectal Rectal exam: Present: deferred - Extremities Exam Extremities exam: Present: other (Large dorsal diabetic foot ulcer noted with purulent discharge and redness at site.) - Back Exam Back exam: Present: normal inspection - Neurological Exam Neurological exam: Present: alert, oriented X3 - Psychiatric Psychiatric exam: Present: normal affect, normal mood - Skin Skin exam: Present: warm, dry, normal color, erythema (To the right lateral f oot.), other (Open diabetic ulcer right lateral foot. Purulent discharge and redness.). Absent: rash ED Course Vital Signs 07/08/20 19:54 Temperature 99 F Pulse Rate 85 Blood Pressure 185/81 [Left] - Reevaluation(s) Reevaluation #1: I discussed all results with patient. I discussed plan of care with patient. Patient agrees with plan of care and admission. Patient to be admitted to the hospitalist service. 07/09/20 04:35 - Consultations Consultation #1: Hospitalist consulted for admission. Hospitalist to admit patient. 07/09/20 04:35 ED Medical Decision Making - Lab Data Result diagrams: 07/08/20 20:17 07/08/20 20:17 - Radiology Data Radiology results: report reviewed, image reviewed HISTORY:Diabetic foot ulcer - R/O Osteomyelitis COMPARISON: None. TECHNIQUE: AP lateral and obliques views were obtained FINDINGS: Bones: No fracture or dislocation. Joint spaces: Maintained. Soft tissues: No significant abnormality. Additional findings: None. IMPRESSION: 1. No significant abnormality. If osteomyelitis is a concern recommend MR for further evaluation - Medical Decision Making Patient is a 40-year-old male presents emergency room with complaints of a right foot ulcer that is draining pus and is red. Patient's evaluation is shows a large foot ulcer with purulent discharge and erythema around the wound. Patient had labs done which were essentially markable except for anemia, elevated WBC and elevated blood sugar. Patient given insulin for blood sugar.. Patient give n IV fluids and broad-spectrum antibiotics. Patient x-ray which shows no acute findings. Critical care time documented due to the multiple reassessments, prolonged time at the bedside, interpretation of diagnostics and labs. - Differential Diagnosis Diabetic foot ulcer, foot infection, Critical Care Time: Yes Critical care time in (mins) excluding proc time.: 35 Critical care attestation.: If time is entered above; I have spent that time in minutes in the direct care of this critically ill patient, excluding procedure time. Critical Care Time: 35 minutes ED Disposition Clinical Impression: Diabetic foot infection DM foot ulcer Qualifiers: Diabetic foot ulcer location: midfoot Diabetes mellitus type: type 2 Laterality: right Non-pressure ulcer stage: unspecified non-pressure ulcer stage Qualified Code(s): E11.621 - Type 2 diabetes mellitus with foot ulcer; L97.419 - Non-pressure chronic ulcer of right heel and midfoot with unspecified severity Wound, open, foot Qualifiers: Encounter type: initial encounter Laterality: right Qualified Code(s): S91.301A - Unspecified open wound, right foot, initial encounter Anemia Qualifiers: Anemia type: unspecified type Qualified Code(s): D64.9 - Anemia, unspecified Disposition: DC09 OP ADMIT IP TO THIS HOSP Is pt being admited?: Yes Does the pt Need Aspirin: No Condition: Critical Instructions: Diabetes Mellitus Type 2 in Adults (ED) Time of Disposition: 04:45
[2020-07-09] MEDS ORDERED: SODIUM CHLORIDE 0.9% 1000 ML 1,000 ML IV ONE (04:42)
[2020-07-09] MEDS ORDERED: PIPERACIL/TAZOBACTA 4.5/NS 100 4.5 GM/100 ML VIAL IV ONE (04:42)
[2020-07-09] MEDS ORDERED: ACETAMINOPHEN 325 MG TAB PO PRN (05:13)
[2020-07-09] MEDS ORDERED: ONDANSETRON 4 MG/2 ML INJ IV PRN (05:13)
[2020-07-09] MEDS ORDERED: DEXTROSE 50% IN WATER (25GM) 50 ML SYRINGE IV PRN (05:13)
--- NOTE | 2020-07-09 05:21 | History and Physical Report ---
History of Present Illness Date of examination: 07/09/20 Date of admission: 07/09/20 04:32 Chief complaint: Right foot diabetic ulcer History of present illness: 40-year-old male with past medical history of diabetes and high blood pressure was brought to the emergency room with complaints of right lateral foot wound has been going on for 4 weeks. patient states the wound is worsening last 2 days. Patient states he is having pain. Patient states he has a history of diabetes hypertension. Patient explains to be taking Metformin and insulin. Patient patient is noncompliant with his medication. He states he does not have a primary care. Patient states he has had ulcers in the past secondary to his diabetes. Patient states he has a history. Patient states the skin is starting to slough off his dorsal right foot and has a purulent discharge. Patient denies fever and chills. Patient states he does not have neuropathy. In the emergency room patient is found to have diabetic foot ulcer Past History Past Medical History: diabetes, hypertension Medications and Allergies Allergies Allergy/AdvReac Type Severity Reaction Status Date / Time No Known Allergies Allergy Unverified 10/05/17 02:57 Home Medications Medication Instructions Recorded Confirmed Last Taken Type Clindamycin [Clindamycin CAP] 300 mg PO Q8H 10 Days #30 cap 10/05/17 Unknown Rx traMADoL [Ultram] 50 mg PO Q6HR PRN #12 tablet 10/05/17 Unknown Rx Amlodipine Besylate [Norvasc] 5 mg PO DAILY #30 tablet 05/03/20 Unknown Rx Active Meds: Active Medications Sodium Chloride (Nacl 0.9% 1000 Ml) 1,000 mls @ 999 mls/hr IV BOLUS ONE Stop: 07/09/20 05:42 Last Admin: 07/09/20 05:08 Dose: 999 mls/hr Documented by: Review of Systems Integumentary: sores, wounds, other (Diabetic foot ulcer) Exam - Constitutional Vitals: Temp Pulse Resp BP Pulse Ox 99 F 85 185/81 07/08/20 19:54 07/08/20 19:54 07/08/20 19:54 General appearance: Present: no acute distress, well-nourished - EENT Eyes: Present: PERRL ENT: hearing intact, clear oral mucosa - Neck Neck: Present: supple, normal ROM - Respiratory Respiratory effort: normal Respiratory: bilateral: CTA - Cardiovascular Heart Sounds: Present: S1 & S2. Absent: rub, click - Extremities Extremities: pulses symmetrical, No edema Extremity abnormal: edema, ulceration, erythema, other (Diabetic foot ulcer) Peripheral Pulses: within normal limits - Abdominal General gastrointestinal: Present: soft, non-tender, non-distended, normal bowel sounds Male genitourinary: Present: normal - Integumentary Integumentary: Present: clear, warm, dry - Musculoskeletal Musculoskeletal: gait normal, strength equal bilaterally - Psychiatric Psychiatric: appropriate mood/affect, intact judgment & insight - Neurologic Neurologic: CNII-XII intact, moves all extremities Results - Labs CBC & Chem 7: 07/08/20 20:17 07/08/20 20:17 Labs: Laboratory Last Values WBC 13.5 K/mm3 (4.5-11.0) H 07/08/20 20:17 RBC 3.41 M/mm3 (3.65-5.03) L 07/08/20 20:17 Hgb 9.5 gm/dl (11.8-15.2) L 07/08/20 20:17 Hct 28.5 % (35.5-45.6) L 07/08/20 20:17 MCV 84 fl (84-94) 07/08/20 20:17 MCH 28 pg (28-32) 07/08/20 20:17 MCHC 33 % (32-34) 07/08/20 20:17 RDW 13.0 % (13.2-15.2) L 07/08/20 20:17 Plt Count 559 K/mm3 (140-440) H 07/08/20 20:17 Lymph % (Auto) 13.6 % (13.4-35.0) 07/08/20 20:17 [place] % (Auto) 8.3 % (0.0-7.3) H 07/08/20 20:17 Eos % (Auto) 1.7 % (0.0-4.3) 07/08/20 20:17 Baso % (Auto) 0.3 % (0.0-1.8) 07/08/20 20:17 Lymph # (Auto) 1.8 K/mm3 (1.2-5.4) 07/08/20 20:17 [place] # (Auto) 1.1 K/mm3 (0.0-0.8) H 07/08/20 20:17 Eos # (Auto) 0.2 K/mm3 (0.0-0.4) 07/08/20 20:17 Baso # (Auto) 0.0 K/mm3 (0.0-0.1) 07/08/20 20:17 Seg Neutrophils % 76.1 % (40.0-70.0) H 07/08/20 20:17 Seg Neutrophils # 10.3 K/mm3 (1.8-7.7) H 07/08/20 20:17 Sodium 131 mmol/L (137-145) L 07/08/20 20:17 Potassium 3.9 mmol/L (3.6-5.0) 07/08/20 20:17 Chloride 91.7 mmol/L (98-107) L 07/08/20 20:17 Carbon Dioxide 27 mmol/L (22-30) 07/08/20 20:17 Anion Gap 16 mmol/L 07/08/20 20:17 BUN 15 mg/dL (9-20) 07/08/20 20:17 Creatinine 1.3 mg/dL (0.8-1.3) 07/08/20 20:17 Estimated GFR > 60 ml/min 07/08/20 20:17 BUN/Creatinine Ratio 12 % 07/08/20 20:17 Glucose 430 mg/dL (75-100) H 07/08/20 20:17 Lactic Acid 1.20 mmol/L (0.7-2.0) 07/08/20 20:17 Calcium 9.0 mg/dL (8.4-10.2) 07/08/20 20:17 Total Bilirubin 0.20 mg/dL (0.1-1.2) 07/08/20 20:17 AST 12 units/L (5-40) 07/08/20 20:17 ALT 12 units/L (7-56) 07/08/20 20:17 Alkaline Phosphatase 96 units/L (35-129) 07/08/20 20:17 Total Protein 7.7 g/dL (6.3-8.2) 07/08/20 20:17 Albumin 3.0 g/dL (3.9-5) L 07/08/20 20:17 Albumin/Globulin Ratio 0.6 % 07/08/20 20:17 Assessment and Plan VTE prophylaxis?: Chemical Plan of care discussed with patient/family: Yes - Patient Problems (1) DM foot ulcer Current Visit: Yes Status: Acute Qualifiers: Diabetic foot ulcer location: midfoot Diabetes mellitus type: type 2 Laterality: right Non-pressure ulcer stage: unspecified non-pressure ulcer stage Qualified Code(s): E11.621 - Type 2 diabetes mellitus with foot ulcer; L 97.419 - Non-pressure chronic ulcer of right heel and midfoot with unspecified severity Plan to address problem: Admit the patient to the medical floor. 1800 kcal ADA diet. Zosyn 4.5 g IV every 8 hours. Vancomycin 1 g IV every 12 hours. Wound care evaluation. We also consult surgery for further evaluation and treatment and possible I&D. Blood culture wound culture. CBC BMP in the morning (2) Diabetes 1.5, managed as type 2 Current Visit: Yes Status: Acute Plan to address problem: 1800 kcal ADA diet. We will put the patient on insulin sliding scale Humalog coverage before meals and at bedtime moderate dose. We will recheck hemoglobin A1c and BMP in the morning. We also consult diabetic education (3) Hypertension Current Visit: Yes Status: Acute Plan to address problem: Hydralazine 10 mg IV every 6 hours as needed. We will monitor the blood pressure closely (4) DVT prophylaxis Current Visit: Yes Status: Acute Plan to address problem: Heparin 5000 units subcu every 8 hours. Pepcid 20 mg p.o. twice daily. Patient is a full code
[2020-07-09] MEDS: VANCOMYCIN/NS 1 GM/250 ML 1 GM/250 ML BAG IV SCH ×2 (06:31→17:16)
[2020-07-09] MEDS: HEPARIN 5,000 UNIT/1 ML VIAL SUB-Q SCH ×3 (06:32→23:09)
[2020-07-09] MEDS: INSULIN LISPRO 100 UNIT/ML SUB-Q SCH ×4 (08:47→23:09)
[2020-07-09 09:48] LABS: Chol/HDL Ratio 5.41 %
[2020-07-09] MEDS ORDERED: FAMOTIDINE 10 MG TAB PO SCH (10:00)
--- NOTE | 2020-07-09 11:59 | Event Note ---
Date: 07/09/20 Brief progress note Patient seen and examined This is the second IMS visit of the day He is alert and oriented and admits to noncompliance with medications and states that he has not taken medications for his diabetes or hypertension recently Lab results reviewed A1c 11.7 Start on amlodipine and low-dose MICHAELLE inhibitor this morning due to poorly controlled hypertension Continue IV antibiotics with Unasyn and vancomycin Dressing on the right foot
[2020-07-09] MEDS: amLODIPine 5 MG TAB PO SCH (12:27)
[2020-07-09] MEDS: LISINOPRIL 5 MG TAB PO SCH (12:27)
[2020-07-09] MEDS: glipiZIDE 5 MG TAB PO SCH ×2 (12:27→17:17)
[2020-07-09] MEDS: AMPICILLIN/SULBACTA 3GM/100ML 3 GM/100 ML BAG IV SCH ×3 (12:28→23:09)
[2020-07-09] MEDS: PANTOPRAZOLE 40 MG TAB PO SCH (12:34)
[2020-07-09] MEDS ORDERED: PIPERACIL/TAZOBACTA 4.5/NS 100 4.5 GM/100 ML VIAL IV SCH (13:00)
[2020-07-09] MEDS: metFORMIN 500 MG TAB PO SCH (17:17)
[2020-07-09] MEDS: hydrALAZINE 20 MG/1 ML INJ IV PRN (17:17)
--- NOTE | 2020-07-09 17:58 | Consultation ---
History of Present Illness Consult date: 07/09/20 Chief complaint: Diabetic right foot wound/infection - History of present illness History of present illness: 40 yo diabetic male with right foot wound/infection. Doesn't know what his last A1c was. Smokes 8 cigars per day. Past History Past Medical History: diabetes, hypertension Medications and Allergies Allergies Allergy/AdvReac Type Severity Reaction Status Date / Time No Known Allergies Allergy Unverified 10/05/17 02:57 Home Medications Medication Instructions Recorded Confirmed Last Taken Type Clindamycin [Clindamycin CAP] 300 mg PO Q8H 10 Days #30 cap 10/05/17 Unknown Rx traMADoL [Ultram] 50 mg PO Q6HR PRN #12 tablet 10/05/17 Unknown Rx Amlodipine Besylate [Norvasc] 5 mg PO DAILY #30 tablet 05/03/20 Unknown Rx Active Meds: Active Medications Acetaminophen (Acetaminophen 325 Mg Tab) 650 mg PO Q4H PRN PRN Reason: Pain MILD(1-3)/Fever >100.5/COLLAZO Amlodipine Besylate (Amlodipine 5 Mg Tab) 5 mg PO QDAY [facility] Last Admin: 07/09/20 12:27 Dose: 5 mg Documented by: Dextrose (Dextrose 50% In Water (25gm) 50 Ml Syringe) 50 ml IV Q30MIN PRN; Protocol PRN Reason: Hypoglycemia Glipizide (Glipizide 5 Mg Tab) 5 mg PO BIDDIAB [facility] Last Admin: 07/09/20 17:17 Dose: 5 mg Documented by: Heparin Sodium (Porcine) (Heparin 5,000 Unit/1 Ml Vial) 5,000 unit SUB-Q Q8HR [facility] Last Admin: 07/09/20 17:17 Dose: 5,000 unit Documented by: Hydralazine HCl (Hydralazine 20 Mg/1 Ml Inj) 10 mg IV Q6H PRN PRN Reason: SBP >/=160; DBP >/=90 Last Admin: 07/09/20 17:17 Dose: 10 mg Documented by: Vancomycin HCl (Vancomycin/Ns 1 Gm/250 Ml) 1 gm in 250 mls @ 166.667 mls/hr IV Q12H [facility]; Protocol Last Admin: 07/09/20 17:16 Dose: 166.667 mls/hr Documented by: Ampicillin Sodium/Sulbactam Sodium (Unasyn/Ns 3 Gm/100 Ml) 3 gm in 100 mls @ 200 mls/hr IV Q6H [facility]; Protocol Last Admin: 07/09/20 12:28 Dose: 200 mls/hr Documented by: Insulin Human Lispro (Insulin Lispro 100 Unit/Ml) 0 unit SUB-Q ACHS [facility]; Protocol Last Admin: 07/09/20 17:17 Dose: 3 unit Documented by: Lisinopril (Lisinopril 5 Mg Tab) 5 mg PO QDAY [facility] Last Admin: 07/09/20 12:27 Dose: 5 mg Documented by: Metformin HCl (Metformin 500 Mg Tab) 500 mg PO BIDDIAB [facility] Last Admin: 07/09/20 17:17 Dose: 500 mg Documented by: Ondansetron HCl (Ondansetron 4 Mg/2 Ml Inj) 4 mg IV Q8H PRN PRN Reason: Nausea And Vomiting Pantoprazole Sodium (Pantoprazole 40 Mg Tab) 40 mg PO QDAC [facility] Last Admin: 07/09/20 12:34 Dose: Not Given Documented by: Sodium Chloride (Sodium Chloride 0.9% 10 Ml Flush Syringe) 10 ml IV BID [facility] Last Admin: 07/09/20 12:34 Dose: 10 ml Documented by: Sodium Chloride (Sodium Chloride 0.9% 10 Ml Flush Syringe) 10 ml IV PRN PRN PRN Reason: LINE FLUSH Review of Systems All systems: negative (none) Exam Vital Signs Temp Pulse BP 99 F 85 185/81 07/08/20 19:54 07/08/20 19:54 07/08/20 19:54 - General physical appearance Positive: well developed, well nourished, no distress - Eyes Positive: PERRL, normal occular movement - ENT Positive: normal pinna, normal nares, normal mucosa, no hearing loss, no congestion - Neck Positive: no masses, no bruits, trachea midline, no venous distension - Respiratory Positive: normal expansion, normal respiratory effort, clear to auscultation - Cardiovascular Rhythm: regular Heart Sounds: Present: S1 & S2. Absent: rub, click - Extremities Extremities: abnormal (See Wound Care nurse's photographs and description.) - Breasts Breasts: normal, no mass, no skin changes - Abdomen Abdomen: Present: soft, bowel sounds normal. Absent: tender, distended Hernia: none - Genitourinary Male Genitourinary: normal Female Genitourinary: normal - Integumentary no rash, no growths, no abnormal pigmentation - Neurologic Neurologic: alert and oriented to time, place and person, motor strength and sensation are grossly intact - Musculoskeletal normal gait, normal posture - Psychiatric Psychiatric: appropriate mood/affect, intact judgment & insight Results - Labs 07/08/20 20:17 07/08/20 20:17 Abnormal lab results 07/08/20 07/08/20 07/09/20 Range/Units 20:17 20:17 04:46 WBC 13.5 H (4.5-11.0) K/mm3 RBC 3.41 L (3.65-5.03) M/mm3 Hgb 9.5 L (11.8-15.2) gm/dl Hct 28.5 L (35.5-45.6) % RDW 13.0 L (13.2-15.2) % Plt Count 559 H (140-440) K/mm3 Mitchell % (Auto) 8.3 H (0.0-7.3) % Mitchell # (Auto) 1.1 H (0.0-0.8) K/mm3 Seg Neutrophils % 76.1 H (40.0-70.0) % Seg Neutrophils # 10.3 H (1.8-7.7) K/mm3 Sodium 131 L (137-145) mmol/L Chloride 91.7 L (98-107) mmol/L Glucose 430 H (75-100) mg/dL POC Glucose 346 H (70-105) mg/dL Hemoglobin A1c (4-6) % Albumin 3.0 L (3.9-5) g/dL HDL Cholesterol (40-59) mg/dL 07/09/20 07/09/20 07/09/20 Range/Units 07:54 08:38 08:38 WBC (4.5-11.0) K/mm3 RBC (3.65-5.03) M/mm3 Hgb (11.8-15.2) gm/dl Hct (35.5-45.6) % RDW (13.2-15.2) % Plt Count (140-440) K/mm3 Mitchell % (Auto) (0.0-7.3) % Mitchell # (Auto) (0.0-0.8) K/mm3 Seg Neutrophils % (40.0-70.0) % Seg Neutrophils # (1.8-7.7) K/mm3 Sodium (137-145) mmol/L Chloride (98-107) mmol/L Glucose (75-100) mg/dL POC Glucose 183 H (70-105) mg/dL Hemoglobin A1c 11.7 H (4-6) % Albumin (3.9-5) g/dL HDL Cholesterol 29 L (40-59) mg/dL 07/09/20 07/09/20 Range/Units 11:26 16:58 WBC (4.5-11.0) K/mm3 RBC (3.65-5.03) M/mm3 Hgb (11.8-15.2) gm/dl Hct (35.5-45.6) % RDW (13.2-15.2) % Plt Count (140-440) K/mm3 Mitchell % (Auto) (0.0-7.3) % Mitchell # (Auto) (0.0-0.8) K/mm3 Seg Neutrophils % (40.0-70.0) % Seg Neutrophils # (1.8-7.7) K/mm3 Sodium (137-145) mmol/L Chloride (98-107) mmol/L Glucose (75-100) mg/dL POC Glucose 231 H 209 H (70-105) mg/dL Hemoglobin A1c (4-6) % Albumin (3.9-5) g/dL HDL Cholesterol (40-59) mg/dL Diabetes panel 07/08/20 07/09/20 07/09/20 Range/Units 20:17 08:38 08:38 Sodium 131 L (137-145) mmol/L Potassium 3.9 (3.6-5.0) mmol/L Chloride 91.7 L (98-107) mmol/L Carbon Dioxide 27 (22-30) mmol/L BUN 15 (9-20) mg/dL Creatinine 1.3 (0.8-1.3) mg/dL Glucose 430 H (75-100) mg/dL Hemoglobin A1c 11.7 H (4-6) % Calcium 9.0 (8.4-10.2) mg/dL AST 12 (5-40) units/L ALT 12 (7-56) units/L Alkaline Phosphatase 96 (35-129) units/L Total Protein 7.7 (6.3-8.2) g/dL Albumin 3.0 L (3.9-5) g/dL Triglycerides 134 (2-149) mg/dL HDL Cholesterol 29 L (40-59) mg/dL Calcium panel 07/08/20 Range/Units 20:17 Calcium 9.0 (8.4-10.2) mg/dL Albumin 3.0 L (3.9-5) g/dL Pituitary panel 07/08/20 Range/Units 20:17 Sodium 131 L (137-145) mmol/L Potassium 3.9 (3.6-5.0) mmol/L Chloride 91.7 L (98-107) mmol/L Carbon Dioxide 27 (22-30) mmol/L BUN 15 (9-20) mg/dL Creatinine 1.3 (0.8-1.3) mg/dL Glucose 430 H (75-100) mg/dL Calcium 9.0 (8.4-10.2) mg/dL Adrenal panel 07/08/20 Range/Units 20:17 Sodium 131 L (137-145) mmol/L Potassium 3.9 (3.6-5.0) mmol/L Chloride 91.7 L (98-107) mmol/L Carbon Dioxide 27 (22-30) mmol/L BUN 15 (9-20) mg/dL Creatinine 1.3 (0.8-1.3) mg/dL Glucose 430 H (75-100) mg/dL Calcium 9.0 (8.4-10.2) mg/dL Total Bilirubin 0.20 (0.1-1.2) mg/dL AST 12 (5-40) units/L ALT 12 (7-56) units/L Alkaline Phosphatase 96 (35-129) units/L Total Protein 7.7 (6.3-8.2) g/dL Albumin 3.0 L (3.9-5) g/dL - Imaging Additional studies: Right foot x-ray reviewed. A1c is 11.7. Assessment and Plan - Patient Problems (1) DM foot ulcer Current Visit: Yes Status: Acute Qualifiers: Diabetic foot ulcer location: midfoot Diabetes mellitus type: type 2 Laterality: right Non-pressure ulcer stage: unspecified non-pressure ulcer stage Qualified Code(s): E11.621 - Type 2 diabetes mellitus with foot ulcer; L97.419 - Non-pressure chronic ulcer of right heel and midfoot with unspecified severity Plan to address problem: 1) RLE arterial dopplers 2) MRI of right foot with contrast 3) Strict DM control 4) Pt says he has quit smoking.
[2020-07-10 06:11] LABS: Hematocrit 30.4 % (35.5-45.6); Hemoglobin 10.4 gm/dl (11.8-15.2); Mean Corpuscular HGB Conc 34 % (32-34); Mean Corpuscular Volume 84 fl (84-94); Platelet Count 714 K/mm3 (140-440); Red Blood Count 3.63 M/mm3 (3.65-5.03); Red Cell Distribution Width 12.7 % (13.2-15.2)
[2020-07-10 06:29] LABS: BUN/Creatinine Ratio 9; Blood Urea Nitrogen 9 mg/dL (9-20); Hemolysis Index 12
[2020-07-10] MEDS: AMPICILLIN/SULBACTA 3GM/100ML 3 GM/100 ML BAG IV SCH ×3 (07:08→17:08)
[2020-07-10] MEDS: HEPARIN 5,000 UNIT/1 ML VIAL SUB-Q SCH ×3 (07:10→21:28)
[2020-07-10] MEDS: INSULIN LISPRO 100 UNIT/ML SUB-Q SCH ×4 (08:58→22:30)
[2020-07-10] MEDS: LISINOPRIL 5 MG TAB PO SCH (08:59)
[2020-07-10] MEDS: glipiZIDE 5 MG TAB PO SCH ×2 (08:59→17:09)
[2020-07-10] MEDS: VANCOMYCIN/NS 1 GM/250 ML 1 GM/250 ML BAG IV SCH ×2 (08:59→21:23)
[2020-07-10] MEDS: PANTOPRAZOLE 40 MG TAB PO SCH (08:59)
[2020-07-10] MEDS: amLODIPine 5 MG TAB PO SCH (08:59)
[2020-07-10] MEDS: metFORMIN 500 MG TAB PO SCH ×2 (09:00→17:09)
[2020-07-10] MEDS ORDERED: VANCOMYCIN PHARMACY TO DOSE IV SCH (09:00)
[2020-07-10] MEDS ORDERED: LISINOPRIL 10 MG TAB PO SCH (11:00)
--- NOTE | 2020-07-10 11:02 | Progress Note ---
Subjective Date of service: 07/10/20 Interval history: History of present illness: 40-year-old male with past medical history of diabetes and high blood pressure was brought to the emergency room with complaints of right lateral foot wound has been going on for 4 weeks. patient states the wound is worsening last 2 days. Patient states he is having pain. Patient states he has a history of diabetes hypertension. Patient explains to be taking Metformin and insulin. Patient patient is noncompliant with his medication. He states he does not have a primary care. Patient states he has had ulcers in the past secondary to his diabetes. Patient states he has a history. Patient states the skin is starting to slough off his dorsal right foot and has a purulent discharge. Patient denies fever and chills. Patient states he does not have neuropathy. In the emergency room patient is found to have diabetic foot ulcer 07/10 patient is alert and oriented and offers no specific complaints. He denies any pain in the foot. Denies fever or chills. Denies chest pain or shortness of breath. Lab results reviewed. General surgery note and wound care nurse note and photographs reviewed Assessment and plan Infected diabetic foot ulcer- right foot Continue vancomycin General surgery note reviewed Scheduled for arterial Doppler of the right lower extremity and MRI of the right foot Wound care consulted and note reviewed Type 2 diabetes-uncontrolled secondary to noncompliance with medication Patient states that he has not been taking any medicines secondary to lack of insurance A1c 11.7 Started on oral hypoglycemics including glipizide and Metformin Continue insulin sliding scale coverage Stress the importance of good diabetes control Hypertension Fair Continue amlodipine and lisinopril Neutrophilic leukocytosis Secondary to infected diabetic foot ulcer Continue IV antibiotic and monitor CBC Normocytic anemia No overt bleed Monitor H&H Thrombocytosis Suspect reactive secondary to anemia and inflammation Low HDL Objective - Constitutional Vitals: Vital Signs - 12hr 07/09/20 07/10/20 07/10/20 23:55 05:38 08:59 Temperature 99.7 F H 97.8 F Pulse Rate 80 77 87 Respiratory 17 20 Rate Blood Pressure 149/78 150/74 158/78 O2 Sat by Pulse 98 98 Oximetry General appearance: Present: no acute distress, well-nourished - EENT Eyes: PERRL, EOM intact ENT: hearing intact, clear oral mucosa - Neck Neck: supple, normal ROM - Respiratory Respiratory effort: normal Respiratory: bilateral: CTA - Cardiovascular Rhythm: regular Heart Sounds: Present: S1 & S2 Extremity abnormal: edema (Right pedal edema, right foot covered with dressing) - Gastrointestinal General gastrointestinal: Present: soft, non-tender Rectal Exam: deferred - Genitourinary Male genitourinary: deferred - Musculoskeletal Musculoskeletal: strength equal bilaterally - Neurologic Neurologic: no focal deficits, moves all extremities - Psychiatric Psychiatric: appropriate mood/affect - Labs CBC & Chem 7: 07/10/20 05:50 07/10/20 05:50 Labs: Abnormal lab results 07/09/20 07/09/20 07/09/20 Range/Units 11:26 16:58 21:49 WBC (4.5-11.0) K/mm3 RBC (3.65-5.03) M/mm3 Hgb (11.8-15.2) gm/dl Hct (35.5-45.6) % RDW (13.2-15.2) % Plt Count (140-440) K/mm3 Glucose (75-100) mg/dL POC Glucose 231 H 209 H 200 H (70-105) mg/dL 07/10/20 07/10/20 Range/Units 05:50 05:50 WBC 14.1 H (4.5-11.0) K/mm3 RBC 3.63 L (3.65-5.03) M/mm3 Hgb 10.4 L (11.8-15.2) gm/dl Hct 30.4 L (35.5-45.6) % RDW 12.7 L (13.2-15.2) % Plt Count 714 H (140-440) K/mm3 Glucose 148 H (75-100) mg/dL POC Glucose (70-105) mg/dL
--- NOTE | 2020-07-10 13:23 | Progress Note ---
Assessment and Plan - Patient Problems (1) DM foot ulcer Current Visit: Yes Status: Acute Qualifiers: Diabetic foot ulcer location: midfoot Diabetes mellitus type: type 2 Laterality: right Non-pressure ulcer stage: unspecified non-pressure ulcer stage Qualified Code(s): E11.621 - Type 2 diabetes mellitus with foot ulcer; L97.419 - Non-pressure chronic ulcer of right heel and midfoot with unspecified severity Plan to address problem: 1) Awaiting MRI 2) Awaiting arterial doppler 3) Strict DM control 4) Continue IV antibiotics Subjective Date of service: 07/10/20 Patient Reports: Positive: no new complaints Objective Vital Signs - 12hr 07/10/20 07/10/20 07/10/20 05:38 08:59 10:00 Temperature 97.8 F Pulse Rate 77 87 Respiratory 20 18 Rate Blood Pressure 150/74 158/78 O2 Sat by Pulse 98 Oximetry - Integumentary other (No change in foot exam) - Labs 07/10/20 05:50 07/10/20 05:50 Diabetes panel 07/10/20 Range/Units 05:50 Sodium 138 D (137-145) mmol/L Potassium 3.8 (3.6-5.0) mmol/L Chloride 98.3 (98-107) mmol/L Carbon Dioxide 28 (22-30) mmol/L BUN 9 (9-20) mg/dL Creatinine 1.0 (0.8-1.3) mg/dL Glucose 148 H (75-100) mg/dL Calcium 9.0 (8.4-10.2) mg/dL Calcium panel 07/10/20 Range/Units 05:50 Calcium 9.0 (8.4-10.2) mg/dL Pituitary panel 07/10/20 Range/Units 05:50 Sodium 138 D (137-145) mmol/L Potassium 3.8 (3.6-5.0) mmol/L Chloride 98.3 (98-107) mmol/L Carbon Dioxide 28 (22-30) mmol/L BUN 9 (9-20) mg/dL Creatinine 1.0 (0.8-1.3) mg/dL Glucose 148 H (75-100) mg/dL Calcium 9.0 (8.4-10.2) mg/dL Adrenal panel 07/10/20 Range/Units 05:50 Sodium 138 D (137-145) mmol/L Potassium 3.8 (3.6-5.0) mmol/L Chloride 98.3 (98-107) mmol/L Carbon Dioxide 28 (22-30) mmol/L BUN 9 (9-20) mg/dL Creatinine 1.0 (0.8-1.3) mg/dL Glucose 148 H (75-100) mg/dL Calcium 9.0 (8.4-10.2) mg/dL
[2020-07-10] MEDS: hydrALAZINE 20 MG/1 ML INJ IV PRN (17:19)
[2020-07-10] MEDS ORDERED: LISINOPRIL 5 MG TAB PO SCH (20:00)
[2020-07-11] MEDS: AMPICILLIN/SULBACTA 3GM/100ML 3 GM/100 ML BAG IV SCH ×4 (01:49→19:17)
[2020-07-11] MEDS: DOCUSATE SODIUM 100 MG CAP PO SCH ×3 (01:50→21:09)
[2020-07-11] MEDS: HEPARIN 5,000 UNIT/1 ML VIAL SUB-Q SCH ×3 (06:24→21:09)
[2020-07-11 07:10] LABS: Hematocrit 25.2 % (35.5-45.6); Hemoglobin 8.7 gm/dl (11.8-15.2); Mean Corpuscular HGB Conc 34 % (32-34); Mean Corpuscular Volume 82 fl (84-94); Platelet Count 595 K/mm3 (140-440); Red Blood Count 3.06 M/mm3 (3.65-5.03); Red Cell Distribution Width 13.2 % (13.2-15.2)
[2020-07-11 07:52] LABS: BUN/Creatinine Ratio 8; Blood Urea Nitrogen 8 mg/dL (9-20); Calcium 8.3 mg/dL (8.4-10.2); Hemolysis Index 0
[2020-07-11] MEDS: INSULIN LISPRO 100 UNIT/ML SUB-Q SCH ×4 (08:22→21:56)
[2020-07-11] MEDS: PANTOPRAZOLE 40 MG TAB PO SCH (08:23)
[2020-07-11] MEDS: metFORMIN 500 MG TAB PO SCH ×2 (08:23→17:20)
[2020-07-11] MEDS: glipiZIDE 5 MG TAB PO SCH ×2 (08:23→17:20)
[2020-07-11] MEDS: amLODIPine 5 MG TAB PO SCH (09:27)
[2020-07-11] MEDS: VANCOMYCIN/NS 1 GM/250 ML 1 GM/250 ML BAG IV SCH ×2 (09:37→12:30)
[2020-07-11] MEDS ORDERED: LISINOPRIL 10 MG TAB PO SCH (10:00)
--- NOTE | 2020-07-11 10:00 | Progress Note ---
Subjective Date of service: 07/11/20 Interval history: History of present illness: 40-year-old male with past medical history of diabetes and high blood pressure was brought to the emergency room with complaints of right lateral foot wound has been going on for 4 weeks. patient states the wound is worsening last 2 days. Patient states he is having pain. Patient states he has a history of diabetes hypertension. Patient explains to be taking Metformin and insulin. Patient patient is noncompliant with his medication. He states he does not have a primary care. Patient states he has had ulcers in the past secondary to his diabetes. Patient states he has a history. Patient states the skin is starting to slough off his dorsal right foot and has a purulent discharge. Patient denies fever and chills. Patient states he does not have neuropathy. In the emergency room patient is found to have diabetic foot ulcer 07/10 patient is alert and oriented and offers no specific complaints. He denies any pain in the foot. Denies fever or chills. Denies chest pain or shortness of breath. Lab results reviewed. General surgery note and wound care nurse note and photographs reviewed 07/11 patient is resting in the bed, alert and oriented, no specific complaints, denies any pain fever or chills Waiting for arterial Doppler of the right lower extremity and MRI of the foot. Assessment and plan Infected diabetic foot ulcer- right foot Continue vancomycin General surgery note reviewed Scheduled for arterial Doppler of the right lower extremity and MRI of the right foot Wound care consulted and note reviewed Type 2 diabetes-uncontrolled secondary to noncompliance with medication Patient states that he has not been taking any medicines secondary to lack of insurance A1c 11.7 Started on oral hypoglycemics including glipizide and Metformin Continue insulin sliding scale coverage Stress the importance of good diabetes control Hypertension Fair Continue amlodipine and lisinopril Neutrophilic leukocytosis Secondary to infected diabetic foot ulcer Continue IV antibiotic and monitor CBC Normocytic anemia No overt bleed Monitor H&H Thrombocytosis Suspect reactive secondary to anemia and inflammation Low HDL Objective - Constitutional Vitals: Vital Signs - 12hr 07/11/20 07/11/20 07/11/20 04:00 09:16 09:27 Temperature 98.4 F Pulse Rate 78 101 H 97 H Respiratory 18 18 Rate Blood Pressure 136/88 Blood Pressure 141/80 136/88 [Left] O2 Sat by Pulse 99 100 Oximetry General appearance: Present: no acute distress, well-nourished - EENT Eyes: PERRL, EOM intact ENT: hearing intact - Neck Neck: supple, normal ROM - Respiratory Respiratory effort: normal Respiratory: bilateral: CTA - Cardiovascular Rhythm: regular Heart Sounds: Present: S1 & S2 Extremity abnormal: edema (Right pedal edema, right foot partially covered with dressing) - Gastrointestinal General gastrointestinal: Present: soft, non-tender Rectal Exam: deferred - Genitourinary Male genitourinary: deferred - Musculoskeletal Musculoskeletal: strength equal bilaterally - Neurologic Neurologic: moves all extremities - Psychiatric Psychiatric: appropriate mood/affect - Labs CBC & Chem 7: 07/11/20 06:02 07/11/20 06:02 Labs: Abnormal lab results 07/10/20 07/10/20 07/10/20 Range/Units 08:39 11:52 16:49 RBC (3.65-5.03) M/mm3 Hgb (11.8-15.2) gm/dl Hct (35.5-45.6) % MCV (84-94) fl Plt Count (140-440) K/mm3 Sodium (137-145) mmol/L BUN (9-20) mg/dL Glucose (75-100) mg/dL POC Glucose 250 H 228 H 180 H (70-105) mg/dL Calcium (8.4-10.2) mg/dL 07/10/20 07/11/20 07/11/20 Range/Units 21:14 06:02 06:02 RBC 3.06 L (3.65-5.03) M/mm3 Hgb 8.7 L (11.8-15.2) gm/dl Hct 25.2 L (35.5-45.6) % MCV 82 L (84-94) fl Plt Count 595 H (140-440) K/mm3 Sodium 135 L (137-145) mmol/L BUN 8 L (9-20) mg/dL Glucose 212 H (75-100) mg/dL POC Glucose 179 H (70-105) mg/dL Calcium 8.3 L (8.4-10.2) mg/dL
--- NOTE | 2020-07-11 20:19 | Progress Note ---
Assessment and Plan - Patient Problems (1) DM foot ulcer Current Visit: Yes Status: Acute Qualifiers: Diabetic foot ulcer location: midfoot Diabetes mellitus type: type 2 Laterality: right Non-pressure ulcer stage: unspecified non-pressure ulcer stage Qualified Code(s): E11.621 - Type 2 diabetes mellitus with foot ulcer; L97.419 - Non-pressure chronic ulcer of right heel and midfoot with unspecified severity Plan to address problem: 1) Awaiting MRI 2) Awaiting arterial dopplers Subjective Date of service: 07/11/20 Patient Reports: Positive: no new complaints Objective Vital Signs - 12hr 07/11/20 07/11/20 07/11/20 09:16 09:27 12:33 Temperature 98.9 F Pulse Rate 101 H 97 H 85 Respiratory 18 18 Rate Blood Pressure 136/88 166/91 Blood Pressure 136/88 [Left] O2 Sat by Pulse 100 99 Oximetry 07/11/20 20:17 Temperature 99.1 F Pulse Rate 82 Respiratory 18 Rate Blood Pressure Blood Pressure 162/91 [Left] O2 Sat by Pulse 99 Oximetry - Integumentary other (No change in foot exam.) - Labs 07/11/20 06:02 07/11/20 06:02 Diabetes panel 07/11/20 Range/Units 06:02 Sodium 135 L (137-145) mmol/L Potassium 3.7 (3.6-5.0) mmol/L Chloride 98.4 (98-107) mmol/L Carbon Dioxide 27 (22-30) mmol/L BUN 8 L (9-20) mg/dL Creatinine 1.0 (0.8-1.3) mg/dL Glucose 212 H (75-100) mg/dL Calcium 8.3 L (8.4-10.2) mg/dL Calcium panel 07/11/20 Range/Units 06:02 Calcium 8.3 L (8.4-10.2) mg/dL Pituitary panel 07/11/20 Range/Units 06:02 Sodium 135 L (137-145) mmol/L Potassium 3.7 (3.6-5.0) mmol/L Chloride 98.4 (98-107) mmol/L Carbon Dioxide 27 (22-30) mmol/L BUN 8 L (9-20) mg/dL Creatinine 1.0 (0.8-1.3) mg/dL Glucose 212 H (75-100) mg/dL Calcium 8.3 L (8.4-10.2) mg/dL Adrenal panel 07/11/20 Range/Units 06:02 Sodium 135 L (137-145) mmol/L Potassium 3.7 (3.6-5.0) mmol/L Chloride 98.4 (98-107) mmol/L Carbon Dioxide 27 (22-30) mmol/L BUN 8 L (9-20) mg/dL Creatinine 1.0 (0.8-1.3) mg/dL Glucose 212 H (75-100) mg/dL Calcium 8.3 L (8.4-10.2) mg/dL
[2020-07-12] MEDS: AMPICILLIN/SULBACTA 3GM/100ML 3 GM/100 ML BAG IV SCH ×2 (02:39→07:14)
[2020-07-12] MEDS: VANCOMYCIN/NS 1 GM/250 ML 1 GM/250 ML BAG IV SCH ×3 (03:10→21:49)
[2020-07-12] MEDS: HEPARIN 5,000 UNIT/1 ML VIAL SUB-Q SCH ×4 (05:58→22:20)
[2020-07-12] MEDS: hydrALAZINE 20 MG/1 ML INJ IV PRN ×2 (05:58→18:01)
--- NOTE | 2020-07-12 09:31 | Progress Note ---
Subjective Date of service: 07/12/20 Interval history: History of present illness: 40-year-old male with past medical history of diabetes and high blood pressure was brought to the emergency room with complaints of right lateral foot wound has been going on for 4 weeks. patient states the wound is worsening last 2 days. Patient states he is having pain. Patient states he has a history of diabetes hypertension. Patient explains to be taking Metformin and insulin. Patient patient is noncompliant with his medication. He states he does not have a primary care. Patient states he has had ulcers in the past secondary to his diabetes. Patient states he has a history. Patient states the skin is starting to slough off his dorsal right foot and has a purulent discharge. Patient denies fever and chills. Patient states he does not have neuropathy. In the emergency room patient is found to have diabetic foot ulcer 07/10 patient is alert and oriented and offers no specific complaints. He denies any pain in the foot. Denies fever or chills. Denies chest pain or shortness of breath. Lab results reviewed. General surgery note and wound care nurse note and photographs reviewed 07/11 patient is resting in the bed, alert and oriented, no specific complaints, denies any pain fever or chills Waiting for arterial Doppler of the right lower extremity and MRI of the foot. 07/12 alert and oriented, no complaints, no acute events overnight, scheduled for MRI of the right foot and arterial Doppler of the right lower extremity Assessment and plan Infected diabetic foot ulcer- right foot Continue vancomycin General surgery note reviewed Scheduled for arterial Doppler of the right lower extremity and MRI of the right foot Wound care consulted and note reviewed-unclear if wound cultures were obtained Type 2 diabetes-uncontrolled secondary to noncompliance with medication Patient states that he has not been taking any medicines secondary to lack of insurance A1c 11.7 Started on oral hypoglycemics including glipizide and Metformin Continue insulin sliding scale coverage Stressed the importance of good diabetes control Hypertension Fair Continue amlodipine and lisinopril Neutrophilic leukocytosis-improved Secondary to infected diabetic foot ulcer Continue IV antibiotic and monitor CBC Normocytic anemia No overt bleed Monitor H&H Thrombocytosis Suspect reactive secondary to anemia and inflammation Trending down Low HDL Objective - Constitutional Vitals: Vital Signs - 12hr 07/12/20 07/12/20 05:19 07:08 Temperature 98.8 F Pulse Rate 72 76 Respiratory 18 18 Rate Blood Pressure 157/80 Blood Pressure 165/78 [Left] O2 Sat by Pulse 96 98 Oximetry General appearance: Present: no acute distress, well-nourished - EENT Eyes: PERRL, EOM intact ENT: hearing intact, clear oral mucosa - Neck Neck: supple, normal ROM, no masses or JVD - Respiratory Respiratory effort: normal Respiratory: bilateral: CTA - Cardiovascular Rhythm: regular Heart Sounds: Present: S1 & S2 Extremity abnormal: edema (Right pedal edema) - Gastrointestinal General gastrointestinal: Present: soft, non-tender Rectal Exam: deferred - Genitourinary Male genitourinary: deferred - Musculoskeletal Musculoskeletal: strength equal bilaterally - Neurologic Neurologic: no focal deficits - Psychiatric Psychiatric: appropriate mood/affect - Labs CBC & Chem 7: 07/11/20 06:02 07/11/20 06:02 Labs: Abnormal lab results 07/11/20 07/11/20 07/11/20 Range/Units 08:12 11:22 17:01 POC Glucose 199 H 214 H 137 H (70-105) mg/dL Vancomycin Trough (5.0-20.0) ug/mL 07/11/20 07/12/20 07/12/20 Range/Units 21:11 00:57 08:29 POC Glucose 214 H 161 H (70-105) mg/dL Vancomycin Trough < 4.0 L (5.0-20.0) ug/mL
--- NOTE | 2020-07-12 09:32 | Progress Note ---
Assessment and Plan - Patient Problems (1) DM foot ulcer Current Visit: Yes Status: Acute Qualifiers: Qualified Code(s): E11.621 - Type 2 diabetes mellitus with foot ulcer; L97.419 - Non-pressure chronic ulcer of right heel and midfoot with unspecified severity Plan to address problem: 1) Awaiting results of MRI and arterial doppler Subjective Date of service: 07/12/20 Patient Reports: Positive: no new complaints Objective Vital Signs - 12hr 07/12/20 07/12/20 05:19 07:08 Temperature 98.8 F Pulse Rate 72 76 Respiratory 18 18 Rate Blood Pressure 157/80 Blood Pressure 165/78 [Left] O2 Sat by Pulse 96 98 Oximetry - Integumentary other (There are no changes in his foot exam. DP pulse is 2+. No undrained abscess. No cellulitis.) - Labs 07/11/20 06:02 07/11/20 06:02
[2020-07-12] MEDS ORDERED: LISINOPRIL 10 MG TAB PO SCH (09:34)
[2020-07-12] MEDS: DOCUSATE SODIUM 100 MG CAP PO SCH ×2 (09:38→21:50)
[2020-07-12] MEDS: PANTOPRAZOLE 40 MG TAB PO SCH (09:38)
[2020-07-12] MEDS: glipiZIDE 5 MG TAB PO SCH ×2 (09:38→17:48)
[2020-07-12] MEDS: amLODIPine 5 MG TAB PO SCH (09:38)
[2020-07-12] MEDS: metFORMIN 500 MG TAB PO SCH ×2 (09:38→17:48)
[2020-07-12] MEDS: INSULIN LISPRO 100 UNIT/ML SUB-Q SCH ×4 (09:39→21:49)
[2020-07-12] MEDS: LISINOPRIL 20 MG TAB PO SCH (10:30)
[2020-07-12] MEDS: AMOXICILLIN/K CLAV 875/125MG TAB PO SCH ×2 (10:30→21:50)
--- NOTE | 2020-07-12 11:47 | Vascular Lab Report ---
DUPLEX DOPPLER LOWER EXTREMITY ARTERIAL, RIGHT INDICATION / CLINICAL INFORMATION: right DFU. TECHNIQUE: Arterial duplex examination of the right lower extremity performed using B-mode, color karla w and spectral Doppler assessment. FINDINGS: RIGHT: Common Femoral Artery: PSV 156 cm/sec. Triphasic waveform. Proximal SFA: PSV 181 cm/sec. Triphasic waveform. Mid SFA: PSV 188 cm/sec. Triphasic waveform. Distal SFA: PSV 197 cm/sec. Triphasic waveform. Popliteal artery: PSV 208 cm/sec. Triphasic waveform. Posterior tibial artery: PSV 132 cm/sec. Triphasic waveform. Dorsalis Pedis Artery: PSV 184 cm/sec. Monophasic waveform. Right SAMMY: Not performed. IMPRESSION: 1. Mild atherosclerotic disease in the right lower extremity. Monophasic waveform within the dorsalis pedis artery likely represents mild upstream disease. Ankle-Brachial Index (SAMMY): - Calcified arteries > 1.4 - Normal = 0.9-1.4 - Mild PAD = 0.7-0.89 - Moderate PAD = 0.51-0.69 - Severe PAD < 0.5 Doppler Waveform: - Triphasic is normal. - Biphasic is abnormal if clear transition from triphasic signal along vascular tree. - Monophasic is abnormal. Scribed by: Christina Perla RDMS, RVT Scribed: 07/12/2020 10:18 AM Signer Name: Franky Bowers MD Signed: 07/12/2020 11:43 AM Workstation Name: [email or web address]
--- NOTE | 2020-07-12 15:59 | Consultation ---
History of Present Illness - Reason for Consult Consult date: 07/12/20 PVD Requesting physician: WILMAR SERNA - History of Present Illness 40-year-old male with past medical history of diabetes and high blood pressure was brought to the emergency room with complaints of right lateral foot wound has been going on for 4 weeks. patient states the wound is worsening last 2 days. Patient states he is having pain. Patient states he has a history of diabetes hypertension. Patient explains to be taking Metformin and insulin. Patient patient is noncompliant with his medication. He states he does not have a primary care. Patient states he has had ulcers in the past secondary to his diabetes. Patient states he has a history. Patient states the skin is starting to slough off his dorsal right foot and has a purulent discharge. Patient denies fever and chills. Patient states he does not have neuropathy. Vascular consulted for abnormal arterial Doppler. Patient has bounding right PT and DP pulses. Arterial ultrasound demonstrates monophasic distal tibial flow. Suspect this is due to low resistance waveforms. Ordered SAMMY with physiologic parameters. Patient reports that he had a right lateral foot wound which has worsened. He is noncompliant with his medication. Past History Past Medical History: diabetes, hypertension Medications and Allergies Allergies Allergy/AdvReac Type Severity Reaction Status Date / Time No Known Allergies Allergy Unverified 10/05/17 02:57 Home Medications Medication Instructions Recorded Confirmed Last Taken Type Clindamycin [Clindamycin CAP] 300 mg PO Q8H 10 Days #30 cap 10/05/17 Unknown Rx traMADoL [Ultram] 50 mg PO Q6HR PRN #12 tablet 10/05/17 Unknown Rx Amlodipine Besylate [Norvasc] 5 mg PO DAILY #30 tablet 05/03/20 Unknown Rx Active Meds: Active Medications Acetaminophen (Acetaminophen 325 Mg Tab) 650 mg PO Q4H PRN PRN Reason: Pain MILD(1-3)/Fever >100.5/COLLAZO Amlodipine Besylate (Amlodipine 5 Mg Tab) 5 mg PO QDAY LULY Last Admin: 07/12/20 09:38 Dose: 5 mg Documented by: Amoxicillin/Clavulanate Potassium (Amoxicillin/K Clav 875/125mg Tab) 1 each PO Q12HR [facility]; Protocol Last Admin: 07/12/20 10:30 Dose: 1 each Documented by: Bisacodyl (Bisacodyl 10 Mg Rect Supp) [address] QDAY PRN PRN Reason: constipation Dextrose (Dextrose 50% In Water (25gm) 50 Ml Syringe) 50 ml IV Q30MIN PRN; Protocol PRN Reason: Hypoglycemia Docusate Sodium (Docusate Sodium 100 Mg Cap) 100 mg PO BID [facility] Last Admin: 07/12/20 09:38 Dose: 100 mg Documented by: Glipizide (Glipizide 5 Mg Tab) 5 mg PO BIDDIAB [facility] Last Admin: 07/12/20 09:38 Dose: 5 mg Documented by: Heparin Sodium (Porcine) (Heparin 5,000 Unit/1 Ml Vial) 5,000 unit SUB-Q Q8HR [facility] Last Admin: 07/12/20 13:26 Dose: Not Given Documented by: Hydralazine HCl (Hydralazine 20 Mg/1 Ml Inj) 10 mg IV Q6H PRN PRN Reason: SBP >/=160; DBP >/=90 Last Admin: 07/12/20 05:58 Dose: 10 mg Documented by: Vancomycin HCl (Vancomycin/Ns 1 Gm/250 Ml) 1 gm in 250 mls @ 166.667 mls/hr IV Q8H [facility] Last Admin: 07/12/20 12:30 Dose: 166.667 mls/hr Documented by: Insulin Human Lispro (Insulin Lispro 100 Unit/Ml) 0 unit SUB-Q ACHS [facility]; Protocol Last Admin: 07/12/20 12:30 Dose: 2 unit Documented by: Lisinopril (Lisinopril 20 Mg Tab) 20 mg PO QDAY [facility] Last Admin: 07/12/20 10:30 Dose: 20 mg Documented by: Metformin HCl (Metformin 500 Mg Tab) 500 mg PO BIDDIAB [facility] Last Admin: 07/12/20 09:38 Dose: 500 mg Documented by: Ondansetron HCl (Ondansetron 4 Mg/2 Ml Inj) 4 mg IV Q8H PRN PRN Reason: Nausea And Vomiting Pantoprazole Sodium (Pantoprazole 40 Mg Tab) 40 mg PO QDAC [facility] Last Admin: 07/12/20 09:38 Dose: 40 mg Documented by: Sodium Chloride (Sodium Chloride 0.9% 10 Ml Flush Syringe) 10 ml IV BID [facility] Last Admin: 07/12/20 09:41 Dose: 10 ml Documented by: Sodium Chloride (Sodium Chloride 0.9% 10 Ml Flush Syringe) 10 ml IV PRN PRN PRN Reason: LINE FLUSH Review of Systems All systems: negative (see HPI) Exam - Constitutional Vitals: Temp Pulse Resp BP Pulse Ox 98.8 F 76 18 164/81 98 07/12/20 05:19 07/12/20 07:08 07/12/20 07:08 07/12/20 10:30 07/12/20 07:08 General appearance: Present: no acute distress - EENT Eyes: Present: EOM intact ENT: hearing intact - Neck Neck: Present: supple - Respiratory Respiratory effort: normal - Extremities Extremities: abnormal (Bounding pedal pulses. Right foot ulceration.) - Abdominal General gastrointestinal: Present: soft, non-tender - Psychiatric Psychiatric: appropriate mood/affect, cooperative Results - Labs CBC & Chem 7: 07/11/20 06:02 07/11/20 06:02 Labs: Abnormal lab results 07/11/20 07/11/20 07/12/20 Range/Units 17:01 21:11 00:57 POC Glucose 137 H 214 H (70-105) mg/dL Vancomycin Trough < 4.0 L (5.0-20.0) ug/mL 07/12/20 07/12/20 Range/Units 08:29 12:18 POC Glucose 161 H 196 H (70-105) mg/dL Vancomycin Trough (5.0-20.0) ug/mL Assessment and Plan 40-year-old male with diabetic right foot infection. Has monophasic flow in some of his tibial vessels with bounding pedal pulses. Suspect monophasic flows due to low resistance waveforms secondary to ulceration. Ordered SAMMY with physiologic measurements. Suspect patient has adequate blood flow to heal given preserved velocities within the tibial vessels. Suspect low resistance waveforms due to ulceration. Discussed this with patient. If physiologic studies are normal, no intervention required.
--- NOTE | 2020-07-12 16:52 | Magnetic Resonance Report ---
MR LE joint RT w con INDICATION / CLINICAL INFORMATION: right DFU. TECHNIQUE: Multiplanar, multisequence MR images were obtained. COMPARISON: None available. FINDINGS: A soft tissue ulcer is seen on the dorsal aspect laterally. Abnormal signal is seen in the third and fourth metatarsophalangeal joints and to a lesser degree in the proximal phalanx of the fifth toe. Fl uid collections are seen dorsally and on the plantar region laterally. Following the injection of int ravenous contrast, there is enhancement is seen in the third and fourth metatarsophalangeal joints wi th rim enhancement of the fluid collections described above. IMPRESSION: 1. 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 Soft tissue abscesses in both the plantar and dorsal lateral soft tissue areas Signer Name: Isma Martinez MD FACQuinn Signed: 07/12/2020 4:48 PM Workstation Name: [id number]
[2020-07-13] MEDS: VANCOMYCIN/NS 1 GM/250 ML 1 GM/250 ML BAG IV SCH ×3 (03:34→22:36)
[2020-07-13] MEDS: HEPARIN 5,000 UNIT/1 ML VIAL SUB-Q SCH ×3 (05:42→22:37)
[2020-07-13 07:46] LABS: Hemoglobin 8.6 gm/dl (11.8-15.2); Mean Corpuscular HGB Conc 34 % (32-34); Mean Corpuscular Volume 82 fl (84-94); Platelet Count 669 K/mm3 (140-440); Red Blood Count 3.06 M/mm3 (3.65-5.03); Red Cell Distribution Width 13.2 % (13.2-15.2)
[2020-07-13 08:10] LABS: BUN/Creatinine Ratio 9; Blood Urea Nitrogen 9 mg/dL (9-20); Calcium 8.4 mg/dL (8.4-10.2); Hemolysis Index 0
[2020-07-13] MEDS: INSULIN LISPRO 100 UNIT/ML SUB-Q SCH ×4 (10:42→22:37)
[2020-07-13] MEDS: metFORMIN 500 MG TAB PO SCH ×2 (10:42→17:02)
[2020-07-13] MEDS: PANTOPRAZOLE 40 MG TAB PO SCH (10:42)
[2020-07-13] MEDS: glipiZIDE 5 MG TAB PO SCH ×2 (10:43→17:02)
[2020-07-13] MEDS: DOCUSATE SODIUM 100 MG CAP PO SCH ×2 (10:43→22:37)
[2020-07-13] MEDS: LISINOPRIL 20 MG TAB PO SCH (10:43)
[2020-07-13] MEDS: AMOXICILLIN/K CLAV 875/125MG TAB PO SCH ×2 (10:43→22:36)
[2020-07-13] MEDS: amLODIPine 5 MG TAB PO SCH (10:43)
[2020-07-13] MEDS ORDERED: HYDROmorphone 1 MG/1 ML INJ IV PRN (11:07)
[2020-07-13] MEDS ORDERED: ONDANSETRON 4 MG/2 ML INJ IV PRN (11:07)
--- NOTE | 2020-07-13 11:07 | Anesthesia Consultation ---
Anesthesia Consult and Med Hx Date of service: 07/13/20 - Airway Anesthetic Teeth Evaluation: Good ROM Head & Neck: Adequate Mental/Hyoid Distance: Adequate Mallampati Class: Class II Intubation Access Assessment: Probably Good - Pre-Operative Health Status ASA Pre-Surgery Classification: ASA3 Proposed Anesthetic Plan: General - Pulmonary Hx Smoking: Yes (8 cigs/day) Hx Respiratory Symptoms: No - Cardiovascular System Hx Hypertension: Yes Hx Heart Attack/AMI: No Hx Percutaneous Transluminal Coronary Angioplasty (PTCA): No - Central Nervous System CVA: No - Endocrine Hx Renal Disease: No Hx Liver Disease: No Hx Non-Insulin Dependent Diabetes: Yes Hx Thyroid Disease: No - Hematic Hx Anemia: Yes - Other Systems Hx Obesity: No - Additional Comments Anesthesia Medical History Comments: No prior GA.
--- NOTE | 2020-07-13 11:07 | Anesthesia Day of Surgery ---
Anesthesia Day of Surgery - Day of Surgery Patient Examined: Yes Patient H&P Reviewed: Yes Patient is NPO: Yes
[2020-07-13] MEDS: LACTATED RINGERS 1,000 ML IV SCH (11:20)
[2020-07-13] MEDS ORDERED: propofoL 200 MG/20 ML VIAL IV ONE (11:53)
[2020-07-13] MEDS ORDERED: LIDOCAINE MPF (2%) 20 MG/1 ML VIAL 5 ML ONE (11:55)
[2020-07-13] MEDS ORDERED: fentaNYL 100 MCG/2 ML INJ ONE (11:55)
[2020-07-13] MEDS ORDERED: MIDAZOLAM 2 MG/2 ML INJ IV NR (12:00)
[2020-07-13] MEDS ORDERED: dexAMETHasone 20 MG/5 ML VIAL ONE (12:00)
[2020-07-13] MEDS ORDERED: ONDANSETRON 4 MG/2 ML INJ ONE (12:32)
[2020-07-13] MEDS ORDERED: HYDROmorphone 1 MG/1 ML INJ ONE (12:33)
[2020-07-13] MEDS ORDERED: SODIUM CHLORIDE 0.9% IRR 1,500 ML BOTTLE IR ONE (13:05)
--- NOTE | 2020-07-13 13:08 | Procedure Note ---
Date of procedure: 07/13/20 Pre-op diagnosis: Right foot abscess Post-op diagnosis: same Procedure: I&D of right foot abscess, multiple sites Description of procedure: Pt was placed supine on the OR table. General anesthesia was administered. Right foot was prepped and draped. The tracts between the various skin openings were probed with a hemostat and the skin and SQ tissue over the tracts unroofed. The unroofing resulted in I&D wounds on either side of the 4th toe. A tract on the dorsal aspect over the 4th metatarsal was also unroofed as well as a tract of the plantar distal foot. C&S of purulent drainage was obtained. Necrotic skin, SQ tissue and fascia were excised with scissors and a curette. Bleeding was minimal and was controlled with the Bovie. Wounds were irrigated with warm saline. Wounds were packed open with a dilute Betadine moistened Kerlix roll. Dry 4 X 4's were placed between all the toes. The foot and ankle were then dressed with Kerlix and Coban wraps. Pt tolerated the procedure well. Pt was taken to PACU in stable condition. Anesthesia: other (LMA) Surgeon: KAILYN ECHAVARRIA Estimated blood loss: minimal Pathology: list (C&S) Specimen disposition: to lab Condition: stable Disposition: PACU
--- NOTE | 2020-07-13 14:14 | Post Anesthesia Evaluation ---
- Post Anesthesia Evaluation Patient Participated: Yes Airway Patent: Yes Stable Respiratory Function: Yes Nausea/Vomiting: No Temp > 96.8F: Yes Pain Manageable: Yes Adequeate Hydration: Yes Anesthesia Complications: No
--- NOTE | 2020-07-13 15:19 | Event Note ---
Date: 07/13/20 Still awaiting SAMMY results of the lower extremities. Results still pending.
--- NOTE | 2020-07-13 16:52 | Progress Note ---
Assessment and Plan 40-year-old male with past medical history of diabetes and hypertension who has been noncompliant with his medication was brought to the emergency room with complaints of right lateral foot wound has been going on for 4 weeks. In the emergency room patient is found to have diabetic foot ulcer and admitted for further evaluation and management. --Infected diabetic foot ulcer- right foot Continue vancomycin and augmentin General surgery note reviewed Scheduled for arterial Doppler of the right lower extremity and MRI of the right foot Wound care consulted and note reviewed-unclear if wound cultures were obtained --Type 2 diabetes-uncontrolled secondary to noncompliance with medication Patient states that he has not been taking any medicines secondary to lack of insurance A1c 11.7 Started on oral hypoglycemics including glipizide and Metformin Continue insulin sliding scale coverage Stressed the importance of good diabetes control --Hypertension Fair, Continue amlodipine and lisinopril --Neutrophilic leukocytosis-improved Secondary to infected diabetic foot ulcer Continue IV antibiotic and monitor CBC --Normocytic anemia No overt bleed Monitor H&H --Thrombocytosis Suspect reactive secondary to anemia and inflammation Trending down --Low HDL, encourage tight glycemic control --DVT prophylaxis, Lovenox Daily clinical course: 07/10 patient is alert and oriented and offers no specific complaints. He denies any pain in the foot. Denies fever or chills. Denies chest pain or shortness of breath. Lab results reviewed. General surgery note and wound care nurse note and photographs reviewed 07/11 patient is resting in the bed, alert and oriented, no specific complaints, denies any pain fever or chills. Waiting for arterial Doppler of the right lower extremity and MRI of the foot. 07/12 alert and oriented, no complaints, no acute events overnight, scheduled for MRI of the right foot and arterial Doppler of the right lower extremity 07/13: MRI right foot showed Osteomyelitis of the third and fourth metatarsophalangeal joints and Soft tissue abscesses in both the plantar and dorsal lateral soft tissue areas. Status post I&D today by Dr. Nina. Wait for wound culture result, continue antibiotics. Follow ID recommendation for discharge antibiotics. Subjective Date of service: 07/13/20 Interval history: Patient seen and examined. Medical records and medication list reviewed. No acute event overnight noted by the RN. Patient denies any chest pain or difficulty breathing. Patient is tolerating diet. Status post I&D today Discussed plan of care at bedside with patient. Objective - Exam Narrative Exam: GENERAL: well-developed and well-nourished -[place] male lying on bed appeared to be in no discomfort. HEENT: Normocephalic. Atraumatic. No conjunctival congestion or icterus. Patient has moist mucous membranes. NECK: Supple. Trachea midline. CHEST/LUNGS: Clear to auscultated bilaterally, breathing nonlabored. No wheezes crackles or rhonchi. HEART/CARDIOVASCULAR: Regular in rate and rhythm. S1 and S2 positive. ABDOMEN: Abdomen is soft, nontender. Patient has normal bowel sounds. SKIN: There is no rash. Warm and dry. NEURO: No focal motor deficit. Follows command. MUSCULOSKELETAL: No joint effusion or tenderness. EXTRIMITY: Right foot with wound dressing PSYCH: Cooperative. - Constitutional Vitals: Vital Signs - 12hr 07/13/20 07/13/20 07/13/20 10:15 13:12 13:17 Temperature 98.2 F 97.4 F L Pulse Rate 74 96 H 97 H Respiratory 18 16 16 Rate Blood Pressure 151/88 137/78 135/72 O2 Sat by Pulse 98 100 100 Oximetry 07/13/20 07/13/20 13:22 13:27 Temperature Pulse Rate 97 H 97 H Respiratory 16 18 Rate Blood Pressure 136/82 151/80 O2 Sat by Pulse 99 99 Oximetry - Labs CBC & Chem 7: 07/15/20 05:09 07/15/20 05:09 Labs: Abnormal lab results 07/12/20 07/12/20 07/13/20 Range/Units 16:54 21:11 07:28 RBC 3.06 L (3.65-5.03) M/mm3 Hgb 8.6 L (11.8-15.2) gm/dl Hct 25.0 L (35.5-45.6) % MCV 82 L (84-94) fl Plt Count 669 H (140-440) K/mm3 Glucose (75-100) mg/dL POC Glucose 130 H 184 H (70-105) mg/dL 07/13/20 07/13/20 07/13/20 Range/Units 07:28 07:36 10:38 RBC (3.65-5.03) M/mm3 Hgb (11.8-15.2) gm/dl Hct (35.5-45.6) % MCV (84-94) fl Plt Count (140-440) K/mm3 Glucose 133 H (75-100) mg/dL POC Glucose 133 H 165 H (70-105) mg/dL 07/13/20 Range/Units 13:16 RBC (3.65-5.03) M/mm3 Hgb (11.8-15.2) gm/dl Hct (35.5-45.6) % MCV (84-94) fl Plt Count (140-440) K/mm3 Glucose (75-100) mg/dL POC Glucose 174 H (70-105) mg/dL
[2020-07-13] MEDS: SENNOSIDES 8.6 MG TAB PO SCH (22:37)
[2020-07-14] MEDS: HEPARIN 5,000 UNIT/1 ML VIAL SUB-Q SCH ×3 (05:21→21:01)
[2020-07-14] MEDS: VANCOMYCIN/NS 1 GM/250 ML 1 GM/250 ML BAG IV SCH ×3 (05:22→20:59)
[2020-07-14] MEDS: INSULIN LISPRO 100 UNIT/ML SUB-Q SCH ×4 (09:02→23:35)
[2020-07-14] MEDS: PANTOPRAZOLE 40 MG TAB PO SCH (09:13)
[2020-07-14] MEDS: glipiZIDE 5 MG TAB PO SCH ×2 (09:14→18:51)
[2020-07-14] MEDS: metFORMIN 500 MG TAB PO SCH ×2 (09:14→18:50)
[2020-07-14] MEDS: AMOXICILLIN/K CLAV 875/125MG TAB PO SCH ×2 (11:19→21:00)
[2020-07-14] MEDS: amLODIPine 5 MG TAB PO SCH (11:20)
[2020-07-14] MEDS: DOCUSATE SODIUM 100 MG CAP PO SCH ×2 (11:20→21:00)
[2020-07-14] MEDS: LISINOPRIL 20 MG TAB PO SCH (11:26)
--- NOTE | 2020-07-14 12:31 | Event Note ---
Date: 07/14/20 The patient has palpable pulse and SAMMY's within the normal range. This suggest he has adequate arterial flow to heal his wounds. Would not recommend vascular surgery intervention at this time.
--- NOTE | 2020-07-14 14:21 | Progress Note ---
Assessment and Plan 40-year-old male with past medical history of diabetes and hypertension who has been noncompliant with his medication was brought to the emergency room with complaints of right lateral foot wound has been going on for 4 weeks. In the emergency room patient is found to have diabetic foot ulcer and admitted for further evaluation and management. --Infected diabetic foot ulcer with abscess and osteomylitis- right foot Continue vancomycin and augmentin General surgery note reviewed s/p arterial Doppler of the right lower extremity and MRI of the right foot Wound care consulted and note reviewed-unclear if wound cultures were obtained s/p I and D on 07/13 --Type 2 diabetes-uncontrolled secondary to noncompliance with medication Patient states that he has not been taking any medicines secondary to lack of insurance A1c 11.7 Started on oral hypoglycemics including glipizide and Metformin Continue insulin sliding scale coverage Stressed the importance of good diabetes control --Hypertension Fair, Continue amlodipine and lisinopril --Neutrophilic leukocytosis-improved Secondary to infected diabetic foot ulcer Continue IV antibiotic and monitor CBC --Normocytic anemia No overt bleed Monitor H&H --Thrombocytosis Suspect reactive secondary to anemia and inflammation Trending down --Low HDL, likely due to metabolic syndrome, encouraged tight glycemic control --DVT prophylaxis, Lovenox Daily clinical course: 07/10 patient is alert and oriented and offers no specific complaints. He denies any pain in the foot. Denies fever or chills. Denies chest pain or shortness of breath. Lab results reviewed. General surgery note and wound care nurse note and photographs reviewed 07/11 patient is resting in the bed, alert and oriented, no specific complaints, denies any pain fever or chills. Waiting for arterial Doppler of the right lower extremity and MRI of the foot. 07/12 alert and oriented, no complaints, no acute events overnight, scheduled for MRI of the right foot and arterial Doppler of the right lower extremity 07/13: MRI right foot showed Osteomyelitis of the third and fourth metatars ophalangeal joints and Soft tissue abscesses in both the plantar and dorsal lateral soft tissue areas. Status post I&D today by Dr. Nina. Wait for wound culture result, continue antibiotics. Follow ID recommendation for discharge antibiotics. 07/14: SAMMY study in normal range, vascular recommended no additional intervention. wait on final wound cx report for d/c abx recommendation. consulted ID. Subjective Date of service: 07/14/20 Interval history: Patient seen and examined. Medical records and medication list reviewed. No acute event overnight noted by the RN. Patient denies any chest pain or difficulty breathing. Patient is tolerating diet. Right foot pain improved Discussed plan of care at bedside with patient. Objective - Exam Narrative Exam: GENERAL: well-developed and well-nourished -[place] male lying on bed appeared to be in no discomfort. HEENT: Normocephalic. Atraumatic. No conjunctival congestion or icterus. Pa agustin has moist mucous membranes. NECK: Supple. Trachea midline. CHEST/LUNGS: Clear to auscultated bilaterally, breathing nonlabored. No wheezes crackles or rhonchi. HEART/CARDIOVASCULAR: Regular in rate and rhythm. S1 and S2 positive. ABDOMEN: Abdomen is soft, nontender. Patient has normal bowel sounds. SKIN: There is no rash. Warm and dry. NEURO: No focal motor deficit. Follows command. MUSCULOSKELETAL: No joint effusion or tenderness. EXTRIMITY: Right foot with wound dressing PSYCH: Cooperative. - Constitutional Vitals: Vital Signs - 12hr 07/14/20 07/14/20 07/14/20 05:02 11:10 11:20 Temperature 99.0 F Pulse Rate 75 81 76 Respiratory 18 Rate Blood Pressure 145/73 163/81 163/81 O2 Sat by Pulse 93 99 Oximetry 07/14/20 07/14/20 11:26 13:31 Temperature 98.2 F Pulse Rate 76 Respiratory 20 Rate Blood Pressure 163/81 O2 Sat by Pulse Oximetry - Labs CBC & Chem 7: 07/15/20 05:09 07/15/20 05:09 Labs: Abnormal lab results 07/13/20 07/13/20 07/13/20 Range/Units 10:38 13:16 16:42 POC Glucose 165 H 174 H 316 H (70-105) mg/dL 07/13/20 07/14/20 07/14/20 Range/Units 22:08 07:38 11:30 POC Glucose 277 H 171 H 225 H (70-105) mg/dL
--- NOTE | 2020-07-14 15:40 | Vascular Lab Report ---
BILATERAL SAMMY HISTORY: Right foot ulcer. FINDINGS: ABIs were obtained bilaterally. Right SAMMY is 1.23. Left SAMMY is 1.28. IMPRESSION: Normal ABIs. Signer Name: Marito Morales MD Signed: 07/14/2020 3:35 PM Workstation Name: [id number]
[2020-07-14] MEDS: SENNOSIDES 8.6 MG TAB PO SCH (21:01)
[2020-07-15] MEDS: hydrALAZINE 20 MG/1 ML INJ IV PRN (00:36)
[2020-07-15] MEDS: traZODone 50 MG TAB PO PRN ×2 (01:44→22:22)
[2020-07-15 05:43] LABS: Basophils % (Auto) 0.5 % (0.0-1.8); Eosinophils # (Auto) 0.2 K/mm3 (0.0-0.4); Eosinophils % (Auto) 1.6 % (0.0-4.3); Hematocrit 21.9 % (35.5-45.6); Lymphocytes # (Auto) 2.4 K/mm3 (1.2-5.4); Lymphocytes % (Auto) 23.5 % (13.4-35.0); Mean Corpuscular HGB Conc 36 % (32-34); Mean Corpuscular Volume 82 fl (84-94); Monocytes # (Auto) 0.6 K/mm3 (0.0-0.8); Monocytes % (Auto) 6.2 % (0.0-7.3); Platelet Count 658 K/mm3 (140-440); Red Blood Count 2.67 M/mm3 (3.65-5.03); Red Cell Distribution Width 13.2 % (13.2-15.2)
[2020-07-15 05:56] LABS: BUN/Creatinine Ratio 14; Blood Urea Nitrogen 13 mg/dL (9-20); Calcium 8.4 mg/dL (8.4-10.2); Hemolysis Index 0
[2020-07-15] MEDS: VANCOMYCIN/NS 1 GM/250 ML 1 GM/250 ML BAG IV SCH (06:40)
[2020-07-15] MEDS: HEPARIN 5,000 UNIT/1 ML VIAL SUB-Q SCH ×5 (06:40→22:27)
[2020-07-15] MEDS: INSULIN LISPRO 100 UNIT/ML SUB-Q SCH ×4 (09:46→22:23)
[2020-07-15] MEDS: glipiZIDE 5 MG TAB PO SCH ×2 (09:47→17:44)
[2020-07-15] MEDS: DOCUSATE SODIUM 100 MG CAP PO SCH ×2 (09:47→22:20)
[2020-07-15] MEDS: PANTOPRAZOLE 40 MG TAB PO SCH (09:47)
[2020-07-15] MEDS: LISINOPRIL 20 MG TAB PO SCH (09:47)
[2020-07-15] MEDS: amLODIPine 5 MG TAB PO SCH (09:47)
[2020-07-15] MEDS: metFORMIN 500 MG TAB PO SCH ×2 (09:47→17:44)
[2020-07-15] MEDS: AMOXICILLIN/K CLAV 875/125MG TAB PO SCH (09:47)
[2020-07-15] MEDS ORDERED: VANCOMYCIN 1,250 MG in SODIUM CHLORIDE 0.9% 250ML 250 ML IV SCH (12:00)
--- NOTE | 2020-07-15 13:05 | Progress Note ---
Assessment and Plan 40-year-old male with past medical history of diabetes and hypertension who has been noncompliant with his medication was brought to the emergency room with complaints of right lateral foot wound has been going on for 4 weeks. In the emergency room patient is found to have diabetic foot ulcer and admitted for further evaluation and management. --Infected diabetic foot ulcer with abscess and osteomylitis- right foot Continue vancomycin and augmentin General surgery note reviewed s/p arterial Doppler of the right lower extremity and MRI of the right foot Wound care consulted and wound culture growing group B beta-hemolytic streptococ cus s/p I and D on 07/13 --Type 2 diabetes-uncontrolled secondary to noncompliance with medication Patient states that he has not been taking any medicines secondary to lack of insurance A1c 11.7 Started on oral hypoglycemics including glipizide and Metformin Continue insulin sliding scale coverage Stressed the importance of good diabetes control --Hypertension Fair, Continue amlodipine and lisinopril --Neutrophilic leukocytosis-improved Secondary to infected diabetic foot ulcer Continue IV antibiotic and monitor CBC --Normocytic anemia No overt bleed Monitor H&H --Thrombocytosis Suspect reactive secondary to anemia and inflammation Trending down --Low HDL, likely due to metabolic syndrome, encouraged tight glycemic control --DVT prophylaxis, Lovenox Daily clinical course: 07/10 patient is alert and oriented and offers no specific complaints. He denies any pain in the foot. Denies fever or chills. Denies chest pain or shortness of breath. Lab results reviewed. General surgery note and wound care nurse note and photographs reviewed 07/11 patient is resting in the bed, alert and oriented, no specific complaints, denies any pain fever or chills. Waiting for arterial Doppler of the right lower extremity and MRI of the foot. 07/12 alert and oriented, no complaints, no acute events overnight, scheduled for MRI of the right foot and arterial Doppler of the right lower extremity 07/13: MRI right foot showed Osteomyelitis of the third and fourth met atarsophalangeal joints and Soft tissue abscesses in both the plantar and dorsal lateral soft tissue areas. Status post I&D today by Dr. Nina. Wait for wound culture result, continue antibiotics. Follow ID recommendation for discharge antibiotics. 07/14: SAMMY study in normal range, vascular recommended no additional intervention. wait on final wound cx report for d/c abx recommendation. consu lted ID. 07/15: Wait on ID recommendation for discharge antibiotic set up. Continue wound care. wound culture growing group B beta-hemolytic streptococcus. Subjective Date of service: 07/15/20 Interval history: Patient seen and examined. Medical records and medication list reviewed. No acute event overnight noted by the RN. Patient denies any chest pain or difficulty breathing. Patient is tolerating diet. Right foot pain improved Discussed plan of care at bedside with patient. Objective - Exam Narrative Exam: GENERAL: well-developed and well-nourished -[place] male lying on bed appeared to be in no discomfort. HEENT: Normocephalic. Atraumatic. No conjunctival congestion or icterus. Patient has moist mucous membranes. NECK: Supple. Trachea midline. CHEST/LUNGS: Clear to auscultated bilaterally, breathing nonlabored. No wheezes crackles or rhonchi. HEART/CARDIOVASCULAR: Regular in rate and rhythm. S1 and S2 positive. ABDOMEN: Abdomen is soft, nontender. Patient has normal bowel sounds. SKIN: There is no rash. Warm and dry. NEURO: No focal motor deficit. Follows command. MUSCULOSKELETAL: No joint effusion or tenderness. EXTRIMITY: Right foot with wound dressing PSYCH: Cooperative. - Constitutional Vitals: Vital Signs - 12hr 07/15/20 07/15/20 07/15/20 01:39 05:18 11:15 Temperature 98.5 F 98.1 F Pulse Rate 105 H 80 92 H Respiratory 18 18 20 Rate Blood Pressure 162/81 149/73 Blood Pressure 148/88 [Left] O2 Sat by Pulse 98 96 98 Oximetry - Labs CBC & Chem 7: 07/15/20 05:09 07/15/20 05:09 Labs: Abnormal lab results 07/14/20 07/14/20 07/14/20 Range/Units 11:30 16:31 21:33 RBC (3.65-5.03) M/mm3 Hgb (11.8-15.2) gm/dl Hct (35.5-45.6) % MCV (84-94) fl MCHC (32-34) % Plt Count (140-440) K/mm3 Glucose (75-100) mg/dL POC Glucose 225 H 121 H 229 H (70-105) mg/dL Vancomycin Trough (5.0-20.0) ug/mL 07/15/20 07/15/20 07/15/20 Range/Units 05:09 05:09 05:09 RBC 2.67 L (3.65-5.03) M/mm3 Hgb 8.0 L (11.8-15.2) gm/dl Hct 21.9 L (35.5-45.6) % MCV 82 L (84-94) fl MCHC 36 H (32-34) % Plt Count 658 H (140-440) K/mm3 Glucose 171 H (75-100) mg/dL POC Glucose (70-105) mg/dL Vancomycin Trough 20.4 H (5.0-20.0) ug/mL 07/15/20 Range/Units 07:41 RBC (3.65-5.03) M/mm3 Hgb (11.8-15.2) gm/dl Hct (35.5-45.6) % MCV (84-94) fl MCHC (32-34) % Plt Count (140-440) K/mm3 Glucose (75-100) mg/dL POC Glucose 191 H (70-105) mg/dL Vancomycin Trough (5.0-20.0) ug/mL
--- NOTE | 2020-07-15 13:09 | Consultation ---
History of Present Illness - Reason for Consult Consult date: 07/15/20 Osteomyelitis Requesting physician: AMANDA DENTON - History of Present Illness The patient is a 40-year-old male with diabetes, hypertension admitted with right diabetic foot infection with MRI findings concerning for osteomyelitis and abscess. On 07/13/2020, underwent I&D of the right foot abscess, multiple sites. Otherwise afebrile. ID was consulted for antibiotic recommendations. Currentl y, on p.o. Augmentin and IV vancomycin. Review of Systems: Per HPI Past History Past Medical History: diabetes, hypertension Medications and Allergies Allergies Allergy/AdvReac Type Severity Reaction Status Date / Time No Known Allergies Allergy Unverified 10/05/17 02:57 Home Medications Medication Instructions Recorded Confirmed Last Taken Type Amlodipine Besylate [Norvasc] 5 mg PO DAILY #30 tablet 05/03/20 07/13/20 Unknown Rx glipiZIDE 5 mg PO BID 07/13/20 07/13/20 Unknown History metFORMIN 500 mg PO BID 07/13/20 07/13/20 07/08/20 History Active Meds: Active Medications Acetaminophen (Acetaminophen 325 Mg Tab) 650 mg PO Q4H PRN PRN Reason: Pain MILD(1-3)/Fever >100.5/COLLAZO Amlodipine Besylate (Amlodipine 5 Mg Tab) 5 mg PO QDAY [facility] Last Admin: 07/15/20 09:47 Dose: 5 mg Documented by: Bisacodyl (Bisacodyl 10 Mg Rect Supp) 10 mg WI QDAY PRN PRN Reason: constipation Last Admin: 07/12/20 23:23 Dose: 10 mg Documented by: Dextrose (Dextrose 50% In Water (25gm) 50 Ml Syringe) 50 ml IV Q30MIN PRN; Protocol PRN Reason: Hypoglycemia Docusate Sodium (Docusate Sodium 100 Mg Cap) 100 mg PO BID [facility] Last Admin: 07/15/20 09:47 Dose: 100 mg Documented by: Glipizide (Glipizide 5 Mg Tab) 5 mg PO BIDDIAB [facility] Last Admin: 07/15/20 09:47 Dose: 5 mg Documented by: Heparin Sodium (Porcine) (Heparin 5,000 Unit/1 Ml Vial) 5,000 unit SUB-Q Q8HR [facility] Last Admin: 07/15/20 06:40 Dose: Not Given Documented by: Hydralazine HCl (Hydralazine 20 Mg/1 Ml Inj) 10 mg IV Q6H PRN PRN Reason: SBP >/=160; DBP >/=90 Last Admin: 07/15/20 00:36 Dose: 10 mg Documented by: Lactated Ringer's (Lactated Ringers) 1,000 mls @ 100 mls/hr IV DIRECT [facility] Last Admin: 07/13/20 11:20 Dose: 100 mls/hr Documented by: Ceftriaxone Sodium (Rocephin/Ns 2 Gm/100 Ml) 2 gm in 100 mls @ 200 mls/hr IV Q24HR [facility]; Protocol Insulin Human Lispro (Insulin Lispro 100 Unit/Ml) 0 unit SUB-Q ACHS [facility]; Prot ocol Last Admin: 07/15/20 09:46 Dose: 2 unit Documented by: Lisinopril (Lisinopril 20 Mg Tab) 20 mg PO QDAY [facility] Last Admin: 07/15/20 09:47 Dose: 20 mg Documented by: Metformin HCl (Metformin 500 Mg Tab) 500 mg PO BIDDIAB [facility] Last Admin: 07/15/20 09:47 Dose: 500 mg Documented by: Ondansetron HCl (Ondansetron 4 Mg/2 Ml Inj) 4 mg IV Q8H PRN PRN Reason: Nausea And Vomiting Pantoprazole Sodium (Pantoprazole 40 Mg Tab) 40 mg PO QDAC [facility] Last Admin: 07/15/20 09:47 Dose: 40 mg Documented by: Senna (Sennosides 8.6 Mg Tab) 17.2 mg PO QHS [facility] Last Admin: 07/14/20 21:01 Dose: 17.2 mg Documented by: Sodium Chloride (Sodium Chloride 0.9% 10 Ml Flush Syringe) 10 ml IV BID [facility] Last Admin: 07/15/20 09:48 Dose: 10 ml Documented by: Sodium Chloride (Sodium Chloride 0.9% 10 Ml Flush Syringe) 10 ml IV PRN PRN PRN Reason: LINE FLUSH Trazodone HCl (Trazodone 50 Mg Tab) 50 mg PO QHS PRN PRN Reason: Insomnia Last Admin: 07/15/20 01:44 Dose: 50 mg Documented by: Physical Examination - Physical Exam Narrative exam: Physical Exam: Constitutional: Alert, cooperative. No acute distress Head, Ears, Nose: Normocephalic, atraumatic. External ears, nose normal Eyes: Conjunctivae/corneas clear. No icterus. No ptosis. Neck: Supple, no meningeal signs Cardiovascular: S1, S2 normal. Respiratory: Good air entry, clear to auscultation bilaterally GI: Soft, non-tender; bowel sounds normal. No peritoneal signs Musculoskeletal: R foot in dressing Skin: No rash or abscess Hem/Lymphatic: No palpable cervical or supraclavicular nodes. No lymphangitis Psych: Mood ok. Affect normal Neurological: Awake, alert, oriented. No gross abnormality - Constitutional Vitals: Vital Signs Temp Pulse Resp BP Pulse Ox 98.1 F 92 H 20 148/88 98 07/15/20 11:15 07/15/20 11:15 07/15/20 11:15 07/15/20 11:15 07/15/20 11:15 Temperature -Last 24 Hours Temperature 98.1 F Temperature 98.5 F Temperature 98.9 F Temperature 98.2 F Results - Labs CBC & Chem 7: 07/15/20 05:09 07/15/20 05:09 Labs: Abnormal lab results 07/14/20 07/14/20 07/14/20 Range/Units 11:30 16:31 21:33 RBC (3.65-5.03) M/mm3 Hgb (11.8-15.2) gm/dl Hct (35.5-45.6) % MCV (84-94) fl MCHC (32-34) % Plt Count (140-440) K/mm3 Glucose (75-100) mg/dL POC Glucose 225 H 121 H 229 H (70-105) mg/dL Vancomycin Trough (5.0-20.0) ug/mL 07/15/20 07/15/20 07/15/20 Range/Units 05:09 05:09 05:09 RBC 2.67 L (3.65-5.03) M/mm3 Hgb 8.0 L (11.8-15.2) gm/dl Hct 21.9 L (35.5-45.6) % MCV 82 L (84-94) fl MCHC 36 H (32-34) % Plt Count 658 H (140-440) K/mm3 Glucose 171 H (75-100) mg/dL POC Glucose (70-105) mg/dL Vancomycin Trough 20.4 H (5.0-20.0) ug/mL 07/15/20 Range/Units 07:41 RBC (3.65-5.03) M/mm3 Hgb (11.8-15.2) gm/dl Hct (35.5-45.6) % MCV (84-94) fl MCHC (32-34) % Plt Count (140-440) K/mm3 Glucose (75-100) mg/dL POC Glucose 191 H (70-105) mg/dL Vancomycin Trough (5.0-20.0) ug/mL Assessment and Plan Cultures: 07/09/2020 blood culture: No growth 07/11/2020 right foot wound culture: Group B streptococcus 07/13/2020 right foot OR culture: No growth so far A/P: 40-year-old male with diabetes, hypertension admitted with: #Right foot abscess, diabetic foot infection, associated osteomyelitis: Status post I&D on 07/13/[address] Nina. SAMMY normal, duplex showed mild atherosclerotic disease in the right lower extremity. MRI with osteomyelitis of the third and fourth MTP joints and soft tissue abscess in the plantar and dorsal lateral soft tissue areas. Discussed risk of treatment failure and risk of amputation. #Diabetes mellitus type 2, uncontrolled #Reactive thrombocytosis #Anemia Recs: -IV ceftriaxone 2 g daily for 6 weeks via PICC line (orders placed) ending 08/24/2020 -Maintain tight glycemic control -Wound care -Smoking cessation -Okay for discharge once PICC line and antibiotics arranged D/W Dr. Catina Wilcox MD, FACP [facility] ([facility] O: [phone] F: [phone]
[2020-07-15] MEDS: cefTRIAXone/NS 2 GM/100 ML 2 GM/100 ML BAG IV SCH (13:26)
[2020-07-15] MEDS: SENNOSIDES 8.6 MG TAB PO SCH (22:21)
[2020-07-15] MEDS: LACTATED RINGERS 1,000 ML IV SCH (22:27)
[2020-07-16] MEDS: HEPARIN 5,000 UNIT/1 ML VIAL SUB-Q SCH ×3 (05:28→21:47)
[2020-07-16] MEDS: LACTATED RINGERS 1,000 ML IV SCH (07:37)
[2020-07-16] MEDS: INSULIN LISPRO 100 UNIT/ML SUB-Q SCH ×4 (10:02→23:13)
[2020-07-16] MEDS: cefTRIAXone/NS 2 GM/100 ML 2 GM/100 ML BAG IV SCH (10:02)
[2020-07-16] MEDS: DOCUSATE SODIUM 100 MG CAP PO SCH ×2 (10:03→21:37)
[2020-07-16] MEDS: amLODIPine 5 MG TAB PO SCH (10:03)
[2020-07-16] MEDS: LISINOPRIL 20 MG TAB PO SCH (10:03)
[2020-07-16] MEDS: PANTOPRAZOLE 40 MG TAB PO SCH (10:03)
[2020-07-16] MEDS: metFORMIN 500 MG TAB PO SCH ×2 (10:03→18:14)
[2020-07-16] MEDS: glipiZIDE 5 MG TAB PO SCH ×2 (10:03→18:13)
[2020-07-16] MEDS ORDERED: amLODIPine 5 MG TAB PO SCH (10:06)
[2020-07-16] MEDS: METOPROLOL TARTRATE 25 MG TAB PO SCH ×2 (12:45→21:38)
--- NOTE | 2020-07-16 13:54 | Progress Note ---
Assessment and Plan 40-year-old male with past medical history of diabetes and hypertension who has been noncompliant with his medication was brought to the emergency room with complaints of right lateral foot wound has been going on for 4 weeks. In the emergency room patient is found to have diabetic foot ulcer and admitted for further evaluation and management. A/P --Infected diabetic foot ulcer with abscess and osteomylitis- right foot Continue Rocephin per ID, status post vancomycin and augmentin General surgery note reviewed s/p arterial Doppler of the right lower extremity and MRI of the right foot Wound care consulted and wound culture growing group B beta-hemolytic streptococcus s/p I and D on 07/13 --Type 2 diabetes-uncontrolled secondary to noncompliance with medication Patient states that he has not been taking any medicines secondary to lack of insurance A1c 11.7 Started on oral hypoglycemics including glipizide and Metformin Continue insulin sliding scale coverage Stressed the importance of good diabetes control --Hypertension Fair, Continue amlodipine and lisinopril --Neutrophilic leukocytosis-improved Secondary to infected diabetic foot ulcer Continue IV antibiotic and monitor CBC --Normocytic anemia No overt bleed Monitor H&H --Thrombocytosis Suspect reactive secondary to anemia and inflammation Trending down --Low HDL, likely due to metabolic syndrome, encouraged tight glycemic control --DVT prophylaxis, Lovenox Daily clinical course: 07/10 patient is alert and oriented and offers no specific complaints. He denies any pain in the foot. Denies fever or chills. Denies chest pain or shortness of breath. Lab results reviewed. General surgery note and wound care nurse note and photographs reviewed 07/11 patient is resting in the bed, alert and oriented, no specific complaints, denies any pain fever or chills. Waiting for arterial Doppler of the right lower extremity and MRI of the foot. 07/12 alert and oriented, no complaints, no acute events overnight, scheduled for MRI of the right foot and arterial Doppler of the right lower extremity 07/13: MRI right foot showed Osteomyelitis of the third and fourth metatarsophalangeal joints and Soft tissue abscesses in both the plantar and dorsal lateral soft tissue areas. Status post I&D today by Dr. Nina. Wait for wound culture result, continue antibiotics. Follow ID recommendation for discharge antibiotics. 07/14: SAMMY study in normal range, vascular recommended no additional intervention. wait on final wound cx report for d/c abx recommendation. consulted ID. 07/15: Wait on ID recommendation for discharge antibiotic set up. Continue wound care. wound culture growing group B beta-hemolytic streptococcus. 07/16: Patient needs IV antibiotics on discharge, ordered for PICC line placement. Plan to discharge on IV ceftriaxone 2 g daily for 6 weeks via PICC line ending 08/24/2020 -manager of creative services notified for home antibiotics set up. Subjective Date of service: 07/16/20 Interval history: Patient seen and examined. Medical records and medication list reviewed. No acute event overnight noted by the RN. Patient denies any chest pain or difficulty breathing. Patient is tolerating diet. Right foot pain improved, need iv abx on discharge Discussed plan of care at bedside with patient. Objective - Exam Narrative Exam: GENERAL: well-developed and well-nourished -[place] male lying on bed appeared to be in no discomfort. HEENT: Normocephalic. Atraumatic. No conjunctival congestion or icterus. Patient has moist mucous membranes. NECK: Supple. Trachea midline. CHEST/LUNGS: Clear to auscultated bilaterally, breathing nonlabored. No wheezes crackles or rhonchi. HEART/CARDIOVASCULAR: Regular in rate and rhythm. S1 and S2 positive. ABDOMEN: Abdomen is soft, nontender. Patient has normal bowel sounds. SKIN: There is no rash. Warm and dry. NEURO: No focal motor deficit. Follows command. MUSCULOSKELETAL: No joint effusion or tenderness. EXTRIMITY: Right foot with wound dressing PSYCH: Cooperative. - Constitutional Vitals: Vital Signs - 12hr 07/16/20 07/16/20 07/16/20 04:17 09:55 12:44 Temperature 98.9 F 97.8 F 98 F Pulse Rate 75 79 73 Respiratory 20 16 16 Rate Blood Pressure 160/81 Blood Pressure 150/81 171/88 [Left] O2 Sat by Pulse 98 94 100 Oximetry - Labs CBC & Chem 7: 07/15/20 05:09 07/15/20 05:09 Labs: Abnormal lab results 07/15/20 07/16/20 07/16/20 Range/Units 21:41 07:51 11:14 POC Glucose 179 H 159 H 304 H (70-105) mg/dL
--- NOTE | 2020-07-16 16:14 | Progress Note ---
Assessment and Plan Cultures: 07/09/2020 blood culture: No growth 07/11/2020 right foot wound culture: Group B streptococcus 07/13/2020 right foot OR culture: No growth so far A/P: 40-year-old male with diabetes, hypertension admitted with: #Right foot abscess, diabetic foot infection, associated osteomyelitis: Status post I&D on 07/13/[address] Nina. SAMMY normal, duplex showed mild atherosclerotic disease in the right lower extremity. MRI with osteomyelitis of the third and fourth MTP joints and soft tissue abscess in the plantar and dorsal lateral soft tissue areas. Discussed risk of treatment failure and risk of amputation. #Diabetes mellitus type 2, uncontrolled #Reactive thrombocytosis #Anemia Recs: -IV ceftriaxone 2 g daily for 6 weeks via PICC line ending 08/24/2020 -Maintain tight glycemic control -Wound care -Smoking cessation -ID clinic follow up in 4-5 weeks (radiology scheduler notified, contact info also given) Samaria Wilcox MD, FACP [facility] ([facility]) O: [phone] F: [phone] Subjective Date of service: 07/16/20 Interval history: No fever. No complaints. Objective - Exam Narrative Exam: Physical Exam: Constitutional: Alert, cooperative. No acute distress Head, Ears, Nose: Normocephalic, atraumatic. External ears, nose normal Eyes: Conjunctivae/corneas clear. No icterus. No ptosis. Neck: Supple, no meningeal signs Cardiovascular: S1, S2 normal. Respiratory: Good air entry, clear to auscultation bilaterally GI: Soft, non-tender; bowel sounds normal. No peritoneal signs Musculoskeletal: R foot in dressing Skin: No rash or abscess Hem/Lymphatic: No palpable cervical or supraclavicular nodes. No lymphangitis Psych: Mood ok. Affect normal Neurological: Awake, alert, oriented. No gross abnormality - Constitutional Vitals: Vital Signs Temp Pulse Resp BP Pulse Ox 98 F 73 16 171/88 100 07/16/20 12:44 07/16/20 12:44 07/16/20 12:44 07/16/20 12:44 07/16/20 12:44 Temperature -Last 24 Hours Temperature 98 F Temperature 97.8 F Temperature 98.9 F Temperature 99.2 F - Labs CBC & Chem 7: 07/15/20 05:09 07/15/20 05:09 Labs: Abnormal lab results 07/15/20 07/16/20 07/16/20 Range/Units 21:41 07:51 11:14 POC Glucose 179 H 159 H 304 H (70-105) mg/dL
[2020-07-16] MEDS: SENNOSIDES 8.6 MG TAB PO SCH (21:37)
[2020-07-16] MEDS ORDERED: TEMAZEPAM 15 MG CAP PO ONE (23:30)
[2020-07-17] MEDS: HEPARIN 5,000 UNIT/1 ML VIAL SUB-Q SCH ×3 (05:27→21:40)
[2020-07-17] MEDS: INSULIN LISPRO 100 UNIT/ML SUB-Q SCH ×4 (07:30→21:37)
[2020-07-17] MEDS: PANTOPRAZOLE 40 MG TAB PO SCH (07:30)
[2020-07-17] MEDS: glipiZIDE 5 MG TAB PO SCH ×2 (08:00→17:19)
[2020-07-17] MEDS: cefTRIAXone/NS 2 GM/100 ML 2 GM/100 ML BAG IV SCH (09:25)
[2020-07-17] MEDS: METOPROLOL TARTRATE 25 MG TAB PO SCH ×2 (09:26→21:36)
[2020-07-17] MEDS: metFORMIN 500 MG TAB PO SCH ×2 (09:26→17:19)
[2020-07-17] MEDS: LISINOPRIL 20 MG TAB PO SCH (09:26)
[2020-07-17] MEDS: amLODIPine 10 MG TAB PO SCH (09:26)
[2020-07-17] MEDS: DOCUSATE SODIUM 100 MG CAP PO SCH ×2 (09:27→21:36)
[2020-07-17] MEDS: SENNOSIDES 8.6 MG TAB PO SCH (21:36)
[2020-07-18] MEDS: HEPARIN 5,000 UNIT/1 ML VIAL SUB-Q SCH ×3 (06:00→23:53)
[2020-07-18] MEDS: PANTOPRAZOLE 40 MG TAB PO SCH (08:18)
[2020-07-18] MEDS: metFORMIN 500 MG TAB PO SCH ×2 (08:18→16:14)
[2020-07-18] MEDS: INSULIN LISPRO 100 UNIT/ML SUB-Q SCH ×4 (08:19→22:29)
[2020-07-18] MEDS: glipiZIDE 5 MG TAB PO SCH ×2 (08:19→16:14)
[2020-07-18] MEDS: amLODIPine 10 MG TAB PO SCH (10:07)
[2020-07-18] MEDS: METOPROLOL TARTRATE 25 MG TAB PO SCH ×2 (10:08→21:55)
[2020-07-18] MEDS: DOCUSATE SODIUM 100 MG CAP PO SCH ×2 (10:08→21:55)
[2020-07-18] MEDS: LISINOPRIL 20 MG TAB PO SCH (10:08)
[2020-07-18] MEDS: cefTRIAXone/NS 2 GM/100 ML 2 GM/100 ML BAG IV SCH (10:08)
--- NOTE | 2020-07-18 11:21 | Progress Note ---
Assessment and Plan A/P --Infected diabetic foot ulcer with abscess and osteomylitis- right foot Continue Rocephin per ID, status post vancomycin and augmentin General surgery note reviewed s/p arterial Doppler of the right lower extremity and MRI of the right foot Wound care consulted and wound culture growing group B beta-hemolytic streptococcus s/p I and D on 07/13 --Type 2 diabetes-uncontrolled secondary to noncompliance with medication Patient states that he has not been taking any medicines secondary to lack of insurance A1c 11.7 Started on oral hypoglycemics including glipizide and Metformin Continue insulin sliding scale coverage Stressed the importance of good diabetes control --Hypertension Fair, Continue amlodipine and lisinopril --Neutrophilic leukocytosis-improved Secondary to infected diabetic foot ulcer Continue IV antibiotic and monitor CBC --Normocytic anemia No overt bleed Monitor H&H --Thrombocytosis Suspect reactive secondary to anemia and inflammation Trending down --Low HDL, likely due to metabolic syndrome, encouraged tight glycemic control --DVT prophylaxis, Lovenox Subjective Date of service: 07/17/20 Principal diagnosis: Right foot infection and osteomyelitis Interval history: Daily clinical course: 07/10 patient is alert and oriented and offers no specific complaints. He denies any pain in the foot. Denies fever or chills. Denies chest pain or shortness of breath. Lab results reviewed. General surgery note and wound care nurse note and photographs reviewed 07/11 patient is resting in the bed, alert and oriented, no specific complaints, denies any pain fever or chills. Waiting for arterial Doppler of the right lower extremity and MRI of the foot. 07/12 alert and oriented, no complaints, no acute events overnight, scheduled for MRI of the right foot and arterial Doppler of the right lower extremity 07/13: MRI right foot showed Osteomyelitis of the third and fourth metatarsophalangeal joints and Soft tissue abscesses in both the plantar and dorsal lateral soft tissue areas. Status post I&D today by Dr. Nina. Wait for wound culture result, continue antibiotics. Follow ID recommendation for discharge antibiotics. 07/14: SAMMY study in normal range, vascular recommended no additional intervention. wait on final wound cx report for d/c abx recommendation. consulted ID. 07/15: Wait on ID recommendation for discharge antibiotic set up. Continue wound care. wound culture growing group B beta-hemolytic streptococcus. 07/16: Patient needs IV antibiotics on discharge, ordered for PICC line placement. Plan to discharge on IV ceftriaxone 2 g daily for 6 weeks via PICC line ending 08/24/2020 -gallery manager notified for home antibiotics set up. 07/17/2020 Patient waiting for IV antibiotics Objective - Constitutional Vitals: Vital Signs - 12hr 07/18/20 07/18/20 07/18/20 06:24 08:24 10:07 Temperature 98.7 F Pulse Rate 79 84 Pulse Rate [ 84 Right Radial] Respiratory 20 20 Rate Blood Pressure 168/95 173/92 O2 Sat by Pulse 98 99 Oximetry General appearance: Present: no acute distress, well-nourished - EENT Eyes: PERRL, EOM intact ENT: hearing intact, clear oral mucosa Ears: bilateral: normal - Neck Neck: supple, normal ROM - Respiratory Respiratory effort: normal Respiratory: bilateral: CTA - Breasts Breasts: normal - Cardiovascular Rhythm: regular Heart Sounds: Present: S1 & S2. Absent: gallop, rub Extremities: pulses intact, No edema, normal color, Full ROM, abnormal (Right foot infection) Extremity abnormal: other (Right foot infection) - Gastrointestinal General gastrointestinal: Present: soft, non-tender, non-distended, normal bowel sounds - Genitourinary Male genitourinary: normal - Integumentary Integumentary: clear, warm, dry - Musculoskeletal Musculoskeletal: 1, strength equal bilaterally - Neurologic Neurologic: moves all extremities - Psychiatric Psychiatric: memory intact, appropriate mood/affect, intact judgment & insight - Labs CBC & Chem 7: 07/15/20 05:09 07/15/20 05:09 Labs: Abnormal lab results 07/17/20 07/17/20 07/18/20 Range/Units 11:30 21:32 08:12 POC Glucose 186 H 215 H 192 H (70-105) mg/dL
--- NOTE | 2020-07-18 11:22 | Progress Note ---
Assessment and Plan A/P --Infected diabetic foot ulcer with abscess and osteomylitis- right foot Continue Rocephin per ID, status post vancomycin and augmentin General surgery note reviewed s/p arterial Doppler of the right lower extremity and MRI of the right foot Wound care consulted and wound culture growing group B beta-hemolytic streptococcus s/p I and D on 07/13 --Type 2 diabetes-uncontrolled secondary to noncompliance with medication Patient states that he has not been taking any medicines secondary to lack of insurance A1c 11.7 Started on oral hypoglycemics including glipizide and Metformin Continue insulin sliding scale coverage Stressed the importance of good diabetes control --Hypertension Fair, Continue amlodipine and lisinopril --Neutrophilic leukocytosis-improved Secondary to infected diabetic foot ulcer Continue IV antibiotic and monitor CBC --Normocytic anemia No overt bleed Monitor H&H --Thrombocytosis Suspect reactive secondary to anemia and inflammation Trending down --Low HDL, likely due to metabolic syndrome, encouraged tight glycemic control --DVT prophylaxis, Lovenox Subjective Date of service: 07/18/20 Principal diagnosis: Right foot osteomyelitis and cellulitis Interval history: Daily clinical course: 07/10 patient is alert and oriented and offers no specific complaints. He denies any pain in the foot. Denies fever or chills. Denies chest pain or shortness of breath. Lab results reviewed. General surgery note and wound care nurse note and photographs reviewed 07/11 patient is resting in the bed, alert and oriented, no specific complaints, denies any pain fever or chills. Waiting for arterial Doppler of the right lower extremity and MRI of the foot. 07/12 alert and oriented, no complaints, no acute events overnight, scheduled for MRI of the right foot and arterial Doppler of the right lower extremity 07/13: MRI right foot showed Osteomyelitis of the third and fourth metatarsophalangeal joints and Soft tissue abscesses in both the plantar and dorsal lateral soft tissue areas. Status post I&D today by Dr. Nina. Wait for wound culture result, continue antibiotics. Follow ID recommendation for discharge antibiotics. 07/14: SAMMY study in normal range, vascular recommended no additional intervention. wait on final wound cx report for d/c abx recommendation. consulted ID. 07/15: Wait on ID recommendation for discharge antibiotic set up. Continue wound care. wound culture growing group B beta-hemolytic streptococcus. 5/28: Patient needs IV antibiotics on discharge, ordered for PICC line placement. Plan to discharge on IV ceftriaxone 2 g daily for 6 weeks via PICC line ending 08/24/2020 -manager music notified for home antibiotics set up. 07/17/2020 Patient waiting for IV antibiotics via PICC line till 08/24/2020 07/18/2020 Patient complaining of regarding the wait for IV line infusion antibiotics Patient is ready for discharge on 07/20/2020 Objective - Constitutional Vitals: Vital Signs - 12hr 07/18/20 07/18/20 07/18/20 06:24 08:24 10:07 Temperature 98.7 F Pulse Rate 79 84 Pulse Rate [ 84 Right Radial] Respiratory 20 20 Rate Blood Pressure 168/95 173/92 O2 Sat by Pulse 98 99 Oximetry General appearance: Present: no acute distress, well-nourished - EENT Eyes: PERRL, EOM intact ENT: hearing intact, clear oral mucosa Ears: bilateral: normal - Neck Neck: supple, normal ROM - Respiratory Respiratory effort: normal Respiratory: bilateral: CTA - Breasts Breasts: normal - Cardiovascular Heart rate: 78 Rhythm: regular Heart Sounds: Present: S1 & S2. Absent: gallop, rub Extremities: pulses intact, No edema, normal color, Full ROM - Gastrointestinal General gastrointestinal: Present: soft, non-tender, non-distended, normal bowel sounds - Genitourinary Male genitourinary: normal - Integumentary Integumentary: clear, warm, dry - Musculoskeletal Musculoskeletal: 1, strength equal bilaterally - Neurologic Neurologic: moves all extremities - Psychiatric Psychiatric: memory intact, appropriate mood/affect, intact judgment & insight - Labs CBC & Chem 7: 07/15/20 05:09 07/15/20 05:09 Labs: Abnormal lab results 07/17/20 07/17/20 07/18/20 Range/Units 11:30 21:32 08:12 POC Glucose 186 H 215 H 192 H (70-105) mg/dL
[2020-07-18] MEDS ORDERED: ZOLPIDEM 5 MG TAB PO ONE (22:45)
[2020-07-18] MEDS: SENNOSIDES 8.6 MG TAB PO SCH (23:53)
[2020-07-19] MEDS: HEPARIN 5,000 UNIT/1 ML VIAL SUB-Q SCH ×4 (06:20→22:58)
[2020-07-19] MEDS: PANTOPRAZOLE 40 MG TAB PO SCH (08:58)
[2020-07-19] MEDS: glipiZIDE 5 MG TAB PO SCH ×2 (08:58→17:35)
[2020-07-19] MEDS: DOCUSATE SODIUM 100 MG CAP PO SCH ×2 (09:00→22:45)
[2020-07-19] MEDS: LISINOPRIL 20 MG TAB PO SCH (09:00)
[2020-07-19] MEDS: METOPROLOL TARTRATE 25 MG TAB PO SCH ×2 (09:00→22:46)
[2020-07-19] MEDS: metFORMIN 500 MG TAB PO SCH ×2 (09:00→17:34)
[2020-07-19] MEDS: amLODIPine 10 MG TAB PO SCH (09:00)
[2020-07-19] MEDS: INSULIN LISPRO 100 UNIT/ML SUB-Q SCH ×4 (09:01→22:46)
[2020-07-19] MEDS: cefTRIAXone/NS 2 GM/100 ML 2 GM/100 ML BAG IV SCH (09:19)
[2020-07-19] MEDS ORDERED: SODIUM CHLORIDE 0.9% 500 ML 500 ML ONE (11:04)
--- NOTE | 2020-07-19 11:46 | Progress Note ---
Assessment and Plan A/P --Infected diabetic foot ulcer with abscess and osteomylitis- right foot Continue Rocephin per ID, status post vancomycin and augmentin General surgery note reviewed s/p arterial Doppler of the right lower extremity and MRI of the right foot Wound care consulted and wound culture growing group B beta-hemolytic streptococcus s/p I and D on 07/13 Patient needs IV antibiotics through 08/24/2020 Patient has PICC line in place --Type 2 diabetes-uncontrolled secondary to noncompliance with medication Patient states that he has not been taking any medicines secondary to lack of insurance A1c 11.7 Started on oral hypoglycemics including glipizide and Metformin Continue insulin sliding scale coverage Stressed the importance of good diabetes control Patient to follow-up with PCP regarding his diabetes Patient may end up needing insulin 70/30 twice a day --Hypertension Fair, Continue amlodipine and lisinopril --Neutrophilic leukocytosis-improved Secondary to infected diabetic foot ulcer Continue IV antibiotic and monitor CBC --Normocytic anemia No overt bleed Monitor H&H --Thrombocytosis Suspect reactive secondary to anemia and inflammation Trending down --Low HDL, likely due to metabolic syndrome, encouraged tight glycemic control --DVT prophylaxis, Lovenox Subjective Date of service: 07/19/20 Principal diagnosis: Right foot osteomyelitis Interval history: Daily clinical course: 07/10 patient is alert and oriented and offers no specific complaints. He denies any pain in the foot. Denies fever or chills. Denies chest pain or shortness of breath. Lab results reviewed. General surgery note and wound care nurse note and photographs reviewed 07/11 patient is resting in the bed, alert and oriented, no specific complaints, denies any pain fever or chills. Waiting for arterial Doppler of the right lower extremity and MRI of the foot. 07/12 alert and oriented, no complaints, no acute events overnight, scheduled for MRI of the right foot and arterial Doppler of the right lower extremity 07/13: MRI right foot showed Osteomyelitis of the third and fourth metatarsophala ngeal joints and Soft tissue abscesses in both the plantar and dorsal lateral soft tissue areas. Status post I&D today by Dr. Nina. Wait for wound culture result, continue antibiotics. Follow ID recommendation for discharge antibiotics. 07/14: SAMMY study in normal range, vascular recommended no additional intervention. wait on final wound cx report for d/c abx recommendation. consulted ID. 07/15: Wait on ID recommendation for discharge antibiotic set up. Continue wound care. wound culture growing group B beta-hemolytic streptococcus. 07/16: Patient needs IV antibiotics on discharge, ordered for PICC line placement. Plan to discharge on IV ceftriaxone 2 g daily for 6 weeks via PICC l ine ending 08/24/2020 -marketing and promotions manager notified for home antibiotics set up. 07/17/2020 through 07/19/2020 Patient waiting for IV antibiotics at home [facility] and no antibiotic supplies available Objective - Constitutional Vitals: Vital Signs - 12hr 07/19/20 07/19/20 04:40 09:57 Temperature 98.8 F Pulse Rate 84 Respiratory 20 18 Rate Blood Pressure 165/86 O2 Sat by Pulse 97 100 Oximetry General appearance: Present: no acute distress, well-nourished - EENT Eyes: PERRL, EOM intact ENT: hearing intact, clear oral mucosa Ears: bilateral: normal - Neck Neck: supple, normal ROM - Respiratory Respiratory effort: normal Respiratory: bilateral: CTA - Breasts Breasts: normal - Cardiovascular Heart rate: 78 Rhythm: regular Heart Sounds: Present: S1 & S2. Absent: gallop, rub Extremities: pulses intact, No edema, normal color, Full ROM, abnormal (Right foot infection and cellulitis) Extremity abnormal: other (Right foot infection and cellulitis) - Gastrointestinal General gastrointestinal: Present: soft, non-tender, non-distended, normal bowel sounds - Genitourinary Male genitourinary: normal - Integumentary Integumentary: clear, warm, dry - Musculoskeletal Musculoskeletal: 1, strength equal bilaterally - Neurologic Neurologic: moves all extremities - Psychiatric Psychiatric: memory intact, appropriate mood/affect, intact judgment & insight - Labs CBC & Chem 7: 07/15/20 05:09 07/15/20 05:09 Labs: Abnormal lab results 07/18/20 07/18/20 Range/Units 16:12 22:07 POC Glucose 139 H 208 H (70-105) mg/dL
[2020-07-19] MEDS: SENNOSIDES 8.6 MG TAB PO SCH (22:45)
[2020-07-19] MEDS: traZODone 50 MG TAB PO PRN (22:46)
[2020-07-20] MEDS: HEPARIN 5,000 UNIT/1 ML VIAL SUB-Q SCH (05:15)
[2020-07-20] MEDS: INSULIN LISPRO 100 UNIT/ML SUB-Q SCH ×2 (07:43→12:07)
[2020-07-20] MEDS: METOPROLOL TARTRATE 25 MG TAB PO SCH (10:16)
[2020-07-20] MEDS: DOCUSATE SODIUM 100 MG CAP PO SCH (10:16)
[2020-07-20] MEDS: glipiZIDE 5 MG TAB PO SCH (10:16)
[2020-07-20] MEDS: amLODIPine 10 MG TAB PO SCH (10:16)
[2020-07-20] MEDS: metFORMIN 500 MG TAB PO SCH (10:16)
[2020-07-20] MEDS: LISINOPRIL 20 MG TAB PO SCH (10:16)
[2020-07-20] MEDS: cefTRIAXone/NS 2 GM/100 ML 2 GM/100 ML BAG IV SCH (10:17)
[2020-07-20] MEDS: PANTOPRAZOLE 40 MG TAB PO SCH (10:20)
--- NOTE | 2020-07-20 11:42 | Discharge Summary ---
Providers - Providers Date of Admission: 07/12/20 11:56 Date of discharge: 07/20/20 Attending physician: TONNY DEVRIES 07/09/20 04:32 Consult to Physician [CONS] Routine Comment: Consulting Provider: KAILYN NINA Physician Instructions: Reason For Exam: foot ulcer 07/09/20 05:13 Consult to Dietitian/Nutrition [CONS] Routine Physician Instructions: Reason For Exam: Reason for Consult: Diet education 07/09/20 05:24 Consult to Wound/ET Nurse [CONS] Routine Reason For Exam: wound eval 07/12/20 16:18 Consult to Physician [CONS] Routine Comment: Consulting Provider: ELTON BENITEZ Physician Instructions: Reason For Exam: PAD 07/13/20 13:02 Consult to Wound/ET Nurse [CONS] Routine Reason For Exam: wound eval 07/14/20 14:21 Consult to Physician [CONS] Routine Comment: Consulting Provider: OFELIA HUDSON Physician Instructions: Reason For Exam: discharge abx 07/15/20 13:06 Consult to Case Management [CONS] Routine Services Needed at Discharge: Other Notified:: cm notified Comment:: IV abx Additional Physician Instructions: [facility] O: [phone] F: [phone] OUTPATIENT PARENTERAL ANTIBIOTIC THERAPY (OPAT) ORDERS Diagnoses: Right foot osteomyelitis and abscess Antimicrobial administration: IV ceftriaxone 2 g daily for 6 weeks via PICC line ending 08/24/2020 - Remove PICC line after last dose. Lines: Maintain IV access with weekly dressing changes and locks per protocol. Lab monitoring: - CBC with differential, Creatinine, ALT, AST, CRP once a week every Sunday while on IV antibiotics. Please fax results to [phone] and call [phone] for critical lab results. MD [facility] Consult to PICC Line RN [CONS] Routine Reason For Exam: PICC Type Line:: PICC Primary care physician: V BELT FINISHER Hospitalization Condition: Fair Hospital course: Subjective Date of service: 07/20/20 Principal diagnosis: Right foot osteomyelitis Interval history: Daily clinical course: 07/10 patient is alert and oriented and offers no specific complaints. He denies any pain in the foot. Denies fever or chills. Denies chest pain or shortness of breath. Lab results reviewed. General surgery note and wound care nurse note and photographs reviewed 07/11 patient is resting in the bed, alert and oriented, no specific complaints, denies any pain fever or chills. Waiting for arterial Doppler of the right lower extremity and MRI of the foot. 07/12 alert and oriented, no complaints, no acute events overnight, scheduled for MRI of the right foot and arterial Doppler of the right lower extremity 07/13: MRI right foot showed Osteomyelitis of the third and fourth metatarsophalangeal joints and Soft tissue abscesses in both the plantar and dorsal lateral soft tissue areas. Status post I&D today by Dr. Nina. Wait for wound culture result, continue antibiotics. Follow ID recommendation for discharge antibiotics. 07/14: SAMMY study in normal range, vascular recommended no additional interventio n. wait on final wound cx report for d/c abx recommendation. consulted ID. 07/15: Wait on ID recommendation for discharge antibiotic set up. Continue wound care. wound culture growing group B beta-hemolytic streptococcus. 07/16: Patient needs IV antibiotics on discharge, ordered for PICC line placement. Plan to discharge on IV ceftriaxone 2 g daily for 6 weeks via PICC line ending 08/24/2020 -software engineering associate manager notified for home antibiotics set up. 07/17/2020 through 07/19/2020 Patient waiting for IV antibiotics at home [facility] and no antibiotic supplies available 07/20/2020 Patient taught how to change his dressing and IV infusion Patient to follow-up with ID clinic in 2 weeks Patient to follow-up with wound clinic in 2 weeks Assessment and Plan --Infected diabetic foot ulcer with abscess and osteomylitis- right foot Continue Rocephin per ID, status post vancomycin and augmentin General surgery note reviewed s/p arterial Doppler of the right lower extremity and MRI of the right foot Wound care consulted and wound culture growing group B beta-hemolytic streptococcus s/p I and D on 07/13 Patient needs IV antibiotics through 08/24/2020 Patient has PICC line in place --Type 2 diabetes-uncontrolled secondary to noncompliance with medication Patient states that he has not been taking any medicines secondary to lack of insurance A1c 11.7 Started on oral hypoglycemics including glipizide and Metformin Continue insulin sliding scale coverage Stressed the importance of good diabetes control Patient to follow-up with PCP regarding his diabetes Patient may end up needing insulin 70/30 twice a day --Hypertension Fair, Continue amlodipine and lisinopril --Neutrophilic leukocytosis-improved Secondary to infected diabetic foot ulcer Continue IV antibiotic and monitor CBC --Normocytic anemia No overt bleed Monitor H&H --Thrombocytosis Suspect reactive secondary to anemia and inflammation Trending down --Low HDL, likely due to metabolic syndrome, encouraged tight glycemic control --DVT prophylaxis, Lovenox Disposition: DC/TX-06 HOME UNDER HOME TH Final Discharge Diagnosis (Prints w/discharge instructions): Right foot osteomyelitis. Uncontrolled diabetes. Hypertension. Nicotine dependence- smoking cessation counseling done Time spent for discharge: 35 minutes - Discharge Diagnoses (1) Foot osteomyelitis, right Status: Acute Comment: Patient to continue IV antibiotics through 08/24/2020 (2) DM foot ulcer Status: Acute Qualifiers: Diabetic foot ulcer location: midfoot Diabetes mellitus type: type 2 Laterality: right Non-pressure ulcer stage: unspecified non-pressure ulcer stage Qualified Code(s): E11.621 - Type 2 diabetes mellitus with foot ulcer; L97.419 - Non-pressure chronic ulcer of right heel and midfoot with unspecified severity (3) Hypertension Status: Acute Comment: Patient to continue lisinopril and amlodipine (4) Uncontrolled diabetes mellitus Status: Chronic Qualifiers: Diabetes mellitus type: type 2 Comment: Patient started on oral hypoglycemics (5) DVT prophylaxis Status: Acute Core Measure Documentation - Palliative Care Palliative Care/ Comfort Measures: Not Applicable - Core Measures Any of the following diagnoses?: none Exam - Constitutional Vitals: Temp Pulse Resp BP Pulse Ox 98.7 F 91 H 16 138/87 98 07/20/20 05:09 07/20/20 05:09 07/20/20 05:09 07/20/20 05:09 07/20/20 05:09 General appearance: Present: no acute distress, well-nourished - EENT Eyes: Present: PERRL ENT: hearing intact, clear oral mucosa - Neck Neck: Present: supple, normal ROM - Respiratory Respiratory effort: normal Respiratory: bilateral: CTA - Cardiovascular Heart rate: 78 Rhythm: regular Heart Sounds: Present: S1 & S2. Absent: rub, click - Extremities Extremities: pulses symmetrical, No edema, abnormal (Right foot osteomyelitis) Extremity abnormal: other (Right foot ulcer and osteomyelitis) Peripheral Pulses: within normal limits - Abdominal General gastrointestinal: Present: soft, non-tender, non-distended, normal bowel sounds Male genitourinary: Present: normal - Integumentary Integumentary: Present: clear, warm, dry - Musculoskeletal Musculoskeletal: gait normal, strength equal bilaterally - Psychiatric Psychiatric: appropriate mood/affect, intact judgment & insight - Neurologic Neurologic: CNII-XII intact, moves all extremities Plan Diet: diabetic Follow up with: PRIMARY MD RIVERA [Primary Care Provider] - 7 Days OFELIA HUDSON MD [Staff Physician] - 7 Days Prescriptions: amLODIPine 10 mg PO DAILY #30 tablet Amlodipine Besylate [Norvasc] 5 mg PO DAILY #30 tablet Insulin NPH Hum/Reg Insulin Hm [Relion Novolin 70-30 Vial] 13 unit SQ BID 30 Days #1 vial Syring W-Ndl,Disp,Insul,0.5 ml [Ultra Comfort] 1 each MC BID #100 disp.syrin lisinopriL [Zestril TAB] 20 mg PO QDAY #30 tablet Other Discharge Orders: Glucometer (Amb) Location: None Selected Glucometer supplies[Amb] Location: None Selected
[2020-07-20 12:10] VITALS: BP 169/95
== END 2020-07-20 14:55 | disposition home health service (06) | DRG 988 ==
LOC: ED 17:39 → 3A 07-09 04:32 → OBSVTOIN 07-12 11:56
PROVIDERS: ADMIT Hospitalist; ATTEND Internal Medicine
PROC: 0J9Q0ZZ Drainage of Right Foot Subcutaneous Tissue and Fascia, Open Approach (ICD-10-PCS; principal; 2020-07-13)
DX: E11.621 Type 2 diabetes mellitus with foot ulcer (principal); M86.9 Osteomyelitis, unspecified; E11.69 Type 2 diabetes mellitus with other specified complication; I10 Essential (primary) hypertension; E78.5 Hyperlipidemia, unspecified; D64.9 Anemia, unspecified; L97.519 Non-pressure chronic ulcer of other part of right foot with unspecified severity; F17.210 Nicotine dependence, cigarettes, uncomplicated; D72.828 Other elevated white blood cell count; D47.3 Essential (hemorrhagic) thrombocythemia; S91.301A Unspecified open wound, right foot, initial encounter; Z79.84 Long term (current) use of oral hypoglycemic drugs; Z91.19 Patient's noncompliance with other medical treatment and regimen; Z79.899 Other long term (current) drug therapy; Z79.891 Long term (current) use of opiate analgesic
CPT/HCPCS: 36415; 80048; 80053; 80061; 80202; 82140; 82962; 83036; 85025; 85027; 87040; 87075; 87116; 93922; 96374; 96375; G0378; A9575; J0295; J0360; J0696; J1100; J1170; J1644; J1815; J2250; J2405; J2543; J2704; J3010; J3370; J7030; J7120

== ENCOUNTER 2020-07-27 09:43 | Emergency (ER) | payer SELFPAY ==
[2020-07-27 10:00] VITALS: BP 159/69
[2020-07-27 11:38] LABS: Hematocrit 25.7 % (35.5-45.6); Hemoglobin 8.6 gm/dl (11.8-15.2); Mean Corpuscular HGB Conc 34 % (32-34); Mean Corpuscular Volume 84 fl (84-94); Platelet Count 279 K/mm3 (140-440); Red Blood Count 3.08 M/mm3 (3.65-5.03); Red Cell Distribution Width 14.3 % (13.2-15.2)
[2020-07-27 12:03] LABS: BUN/Creatinine Ratio 33; Blood Urea Nitrogen 40 mg/dL (9-20); Calcium 9.2 mg/dL (8.4-10.2); Hemolysis Index 2
== END 2020-07-27 12:41 | disposition home or self-care (01) ==
LOC: ED 09:43
DX: E11.69 Type 2 diabetes mellitus with other specified complication (principal); M86.9 Osteomyelitis, unspecified; I10 Essential (primary) hypertension; F17.200 Nicotine dependence, unspecified, uncomplicated; Z91.19 Patient's noncompliance with other medical treatment and regimen; Z79.899 Other long term (current) drug therapy
CPT/HCPCS: 36415; 80048; 85027; 99283

== ENCOUNTER 2020-08-01 11:01 | Emergency (ER) | payer SELFPAY ==
--- NOTE | 2020-08-01 11:51 | Event Note ---
ED Screening Note Date of service: 08/01/20 Time: 11:50 ED Screening Note: c/o blocked picc line x today states picc line placed here last abx dose yesterday morning denies pain, redness, or fever This initial assessment/diagnostic orders/clinical plan/treatment(s) is/are subject to change based on patients health status, clinical progression and re- assessment by fellow clinical providers in the ED. Further treatment and workup at subsequent clinical providers discretion. Patient/guardian urged not to elope from the ED as their condition may be serious if not clinically assessed and managed. Initial orders include: main ed
[2020-08-02] MEDS ORDERED: ALTEPLASE 2 MG INJ IV ONE (03:32)
--- NOTE | 2020-08-02 03:40 | Emergency Department Report ---
ED General Adult HPI - General Chief complaint: Extremity Problem,Nontraumatic Stated complaint: PICK LINE HAS BLOCKAGE PUI?: No Time Seen by Provider: 08/01/20 11:49 Source: patient Mode of arrival: Ambulatory Limitations: No Limitations - History of Present Illness Initial comments: Chief complaint: "My PICC line is blocked." HPI: This is a 40-year-old male with history of diabetic foot infection, osteomyelitis currently on the second week of ceftriaxone through PICC line, hypertension, anemia who presents with blocked occluded PICC line. He was unable to administer ceftriaxone dose today. He denies any pain. He denies any drainage at the site. Denies any fever or redness. He requires 6 weeks of ceftriaxone therapy. Last dose Sunday morning. He administered ceftriaxone once daily. -: Sudden, This morning Location: right, upper extremity (Right upper extremity occluded PICC line) Consistency: constant Improves with: none Worsens with: none Associated Symptoms: denies other symptoms - Related Data Previous Rx's Medication Instructions Recorded Last Taken Type Amlodipine Besylate [Norvasc] 5 mg PO DAILY #30 tablet 07/20/20 Unknown Rx Insulin NPH Hum/Reg Insulin Hm 13 unit SQ BID 30 Days #1 vial 07/20/20 Unknown Rx [Relion Novolin 70-30 Vial] Syring W-Ndl,Disp,Insul,0.5 ml 1 each MC BID #100 disp.syrin 07/20/20 Unknown Rx [Ultra Comfort] amLODIPine 10 mg PO DAILY #30 tablet 07/20/20 Unknown Rx lisinopriL [Zestril TAB] 20 mg PO QDAY #30 tablet 07/20/20 Unknown Rx Allergies Allergy/AdvReac Type Severity Reaction Status Date / Time No Known Allergies Allergy Verified 08/01/20 11:53 ED Review of Systems ROS: Stated complaint: PICK LINE HAS BLOCKAGE Other details as noted in HPI Comment: All other systems reviewed and negative Constitutional: denies: fever Respiratory: denies: cough, shortness of breath Gastrointestinal: denies: abdominal pain, nausea, vomiting ED Past Medical Hx - Past Medical History Previous Medical History?: Yes Hx Hypertension: Yes Hx CVA: No Hx Heart Attack/AMI: No Hx Congestive Heart Failure: No Hx Diabetes: Yes Hx Deep Vein Thrombosis: No Hx Pulmonary Embolism: No Hx GERD: No Hx Liver Disease: No Hx Renal Disease: No Hx Sickle Cell Disease: No Hx Arthritis: No Hx Headaches / Migraines: No Hx Seizures: No Hx Kidney Stones: No Hx Psychiatric Treatment: No Hx Asthma: No Hx COPD: No Hx Tuberculosis: No Hx Dementia: No Hx HIV: No - Surgical History Past Surgical History?: Yes Hx Pacemaker: No Hx Internal Defibrillator: No - Social History Smoking Status: Current Every Day Smoker Substance Use Type: None - Medications Home Medications: Home Medications Medication Instructions Recorded Confirmed Last Taken Type Amlodipine Besylate [Norvasc] 5 mg PO DAILY #30 tablet 07/20/20 Unknown Rx Insulin NPH Hum/Reg Insulin Hm 13 unit SQ BID 30 Days #1 vial 07/20/20 Unknown Rx [Relion Novolin 70-30 Vial] Syring W-Ndl,Disp,Insul,0.5 ml 1 each MC BID #100 disp.syrin 07/20/20 Unknown Rx [Ultra Comfort] amLODIPine 10 mg PO DAILY #30 tablet 07/20/20 Unknown Rx lisinopriL [Zestril TAB] 20 mg PO QDAY #30 tablet 07/20/20 Unknown Rx ED Physical Exam - General Limitations: No Limitations General appearance: alert, in no apparent distress - Head Head exam: Present: atraumatic, normocephalic - Eye Eye exam: Present: normal appearance - ENT ENT exam: Present: mucous membranes moist - Neck Neck exam: Present: normal inspection, full ROM - Respiratory Respiratory exam: Present: normal lung sounds bilaterally. Absent: respiratory distress, wheezes, rales - Cardiovascular Cardiovascular Exam: Present: regular rate, normal rhythm, normal heart sounds. Absent: systolic murmur, diastolic murmur, rubs, gallop - GI/Abdominal GI/Abdominal exam: Present: soft, normal bowel sounds. Absent: distended, tenderness, guarding, rebound - Rectal Rectal exam: Present: deferred - Extremities Exam Extremities exam: Present: other (Right upper extremity: PICC line site without redness swelling or drainage.) - Back Exam Back exam: Present: normal inspection - Neurological Exam Neurological exam: Present: alert, oriented X3 - Psychiatric Psychiatric exam: Present: normal affect, normal mood - Skin Skin exam: Present: warm, dry, intact, normal color. Absent: rash ED Course Vital Signs 08/01/20 11:50 Temperature 98.3 F Pulse Rate 97 H Respiratory 12 Rate Blood Pressure 184/100 O2 Sat by Pulse 100 Oximetry ED Medical Decision Making - Medical Decision Making Acute PICC line occlusion PICC line occlusion resolved with cathflo. Patient is discharged home. Critical care attestation.: If time is entered above; I have spent that time in minutes in the direct care of this critically ill patient, excluding procedure time. ED Disposition Clinical Impression: Occluded PICC line Disposition: DC-01 TO HOME OR SELFCARE Is pt being admited?: No Does the pt Need Aspirin: No Condition: Stable Instructions: PICC Insertion, Care After
[2020-08-02] MEDS ORDERED: WATER FOR INJ Sterile (PF) 10 ML ONE (03:51)
[2020-08-02 05:04] VITALS: BP 143/73
== END 2020-08-02 05:02 | disposition home or self-care (01) ==
LOC: ED 11:01
DX: T82.868A Thrombosis due to vascular prosthetic devices, implants and grafts, initial encounter (principal); I10 Essential (primary) hypertension; E11.9 Type 2 diabetes mellitus without complications; F17.200 Nicotine dependence, unspecified, uncomplicated; Z79.4 Long term (current) use of insulin; Z79.899 Other long term (current) drug therapy; Y83.8 Other surgical procedures as the cause of abnormal reaction of the patient, or of later complication, without mention of misadventure at the time of the procedure; Y92.89 Other specified places as the place of occurrence of the external cause
CPT/HCPCS: 37212; 99281; J2997

== ENCOUNTER 2021-10-03 05:37 | Emergency (ER) | payer SELFPAY ==
[2021-10-03 06:12] LABS: Basophils % (Auto) 0.6 % (0.0-1.8); Eosinophils # (Auto) 0.1 K/mm3 (0.0-0.4); Eosinophils % (Auto) 1.8 % (0.0-4.3); Hematocrit 24.1 % (35.5-45.6); Hemoglobin 7.7 gm/dl (11.8-15.2); Lymphocytes # (Auto) 1.9 K/mm3 (1.2-5.4); Lymphocytes % (Auto) 27.6 % (13.4-35.0); Mean Corpuscular HGB Conc 32 % (32-34); Mean Corpuscular Volume 86 fl (84-94); Monocytes # (Auto) 0.4 K/mm3 (0.0-0.8); Monocytes % (Auto) 5.8 % (0.0-7.3); Platelet Count 252 K/mm3 (140-440); Red Blood Count 2.82 M/mm3 (3.65-5.03); Red Cell Distribution Width 14.3 % (13.2-15.2)
--- NOTE | 2021-10-03 06:23 | XRay Report ---
CHEST 2 VIEWS INDICATION / CLINICAL INFORMATION: SOB. COMPARISON: None available. FINDINGS: Mild increased interstitial prominence with pulmonary opacities in bilateral lungs. There are bilater al pleural effusions right greater than left. Heart size appears normal. Peribronchial cuffing. This is in the lung apices bilaterally however no definite large pneumothorax. IMPRESSION: Increased interstitial prominence with opacities in bilateral lungs with bilateral pleural effusions Signer Name: Shalom Gleason MD Signed: 10/03/2021 6:18 AM Workstation Name: [id number]
[2021-10-03 06:33] LABS: Alanine Aminotransferase 38 units/L (7-56); Albumin 2.8 g/dL (3.9-5); BUN/Creatinine Ratio 14; Blood Urea Nitrogen 27 mg/dL (9-20); Calcium 8.5 mg/dL (8.4-10.2); Hemolysis Index 3
[2021-10-03] MEDS ORDERED: FUROSEMIDE 40 MG/4 ML INJ IV ONE (08:04)
[2021-10-03] MEDS ORDERED: IPRATROPIUM 0.02% NEBU 2.5 ML IH ONE (08:04)
[2021-10-03] MEDS ORDERED: ALBUTEROL 2.5 MG/3 ML NEBU IH ONE (08:04)
[2021-10-03 09:10] LABS: Creatine Kinase MB 7.7 ng/mL (0.0-4.0)
--- NOTE | 2021-10-03 09:38 | Vascular Lab Report ---
DUPLEX DOPPLER LOWER EXTREMITY VEINS, BILATERAL INDICATION: Shortness of Breath R/O DVT. TECHNIQUE: Duplex doppler imaging was performed through the veins of both lower extremities using ve nous compression and other maneuvers. COMPARISON: No relevant prior imaging study available. FINDINGS: Right Common femoral vein: Negative. Right Superficial femoral vein: Negative. Right Popliteal vein: Negative. Right Calf veins: Negative. Left Common femoral vein: Negative. Left Superficial femoral vein: Negative. Left Popliteal vein: Negative. Left Calf veins: Negative. Additional findings: None. IMPRESSION: No sonographic evidence for DVT in either lower extremity. Signer Name: Avila Brewer Jr, MD Signed: 10/03/2021 9:33 AM Workstation Name: [id number]
[2021-10-03 10:20] LABS: INR 0.89 (0.87-1.13)
--- NOTE | 2021-10-03 10:24 | Cat Scan Report ---
CTA CHEST WITH CONTRAST INDICATION / CLINICAL INFORMATION: SOB. TECHNIQUE: Axial CT images were obtained through the chest after injection of 85 cc of Omnipaque 350 IV contrast. 3 plane MIP and/or 3D reconstructions were produced. All CT scans at this location are p erformed using CT dose reduction for ALARA by means of automated exposure control. COMPARISON: None available. FINDINGS: PULMONARY EMBOLUS: None. THORACIC AORTA: No significant abnormality. HEART: There is mild cardiomegaly and small pericardial effusion. CORONARY ARTERY CALCIFICATION: Present -- Mild. MEDIASTINUM / TAI: No significant abnormality. PLEURA: Small bilateral pleural effusions, right greater than left. No pneumothorax. LUNGS: Moderate pulmonary venous congestion is suspected. There is segmental atelectasis or infiltrat e in the right lower lobe. No suspicious pulmonary lesion. ADDITIONAL FINDINGS: None. UPPER ABDOMEN: No acute findings. SKELETAL STRUCTURES: No significant osseous abnormality. IMPRESSION: 1. No CT evidence for pulmonary embolism. 2. Mild to moderate CHF. 3. Right lower lobe opacity most consistent with atelectatic changes. If fever is present, pneumonia could be considered. Signer Name: Avila Brewer Jr, MD Signed: 10/03/2021 10:19 AM Workstation Name: [id number]
[2021-10-03 11:00] LABS: Mucus,Urine FEW /HPF; WBC,Urine < 1.0 /HPF (0.0-6.0)
[2021-10-03] MEDS ORDERED: FUROSEMIDE 20 MG/2 ML INJ IV ONE (11:00)
[2021-10-03 11:05] LABS: Color,Urine Colorless (Yellow)
[2021-10-03 11:06] LABS: Bilirubin,Urine Negative (Negative); Blood,Urine Trace (Negative)
[2021-10-03 11:07] LABS: Urobilinogen,Urine < 2.0 mg/dL (<2.0)
[2021-10-03 11:33] LABS: Amphetamine Screen,Urine PRESUMPTIVE NEGATIVE; Benzodiazepines Screen,Urine PRESUMPTIVE NEGATIVE; Cannabinoid Screen,Urine PRESUMPTIVE NEGATIVE; Cocaine Screen,Urine PRESUMPTIVE NEGATIVE; Methadone Screen,Urine PRESUMPTIVE NEGATIVE; Opiate Screen,Urine PRESUMPTIVE NEGATIVE
[2021-10-03 12:31] LABS: Chol/HDL Ratio 3.38 %
--- NOTE | 2021-10-03 13:52 | Emergency Department Report ---
ED General Adult HPI - General Chief complaint: Dyspnea/Respdistress Stated complaint: INFLAMMATION PUI?: No Time Seen by Provider: 10/03/21 08:04 Source: patient Mode of arrival: Ambulatory Limitations: No Limitations - History of Present Illness Initial comments: Pt reports bilateral fell swelling and SOB x 1 month. Pt sating 98% on RA in triage. PMHx of HTN and DM. Pt is aaox4, NADN. -: Gradual, days(s) Location: chest Radiation: non-radiation Associated Symptoms: cough, shortness of breath Treatments Prior to Arrival: none - Related Data Previous Rx's Medication Instructions Recorded Last Taken Type Amlodipine Besylate [Norvasc] 5 mg PO DAILY #30 tablet 07/20/20 Unknown Rx Insulin NPH Hum/Reg Insulin Hm 13 unit SQ BID 30 Days #1 vial 07/20/20 Unknown Rx [Relion Novolin 70-30 Vial] Syring W-Ndl,Disp,Insul,0.5 ml 1 each MC BID #100 disp.syrin 07/20/20 Unknown Rx [Ultra Comfort] amLODIPine 10 mg PO DAILY #30 tablet 07/20/20 Unknown Rx lisinopriL [Zestril TAB] 20 mg PO QDAY #30 tablet 07/20/20 Unknown Rx Allergies Allergy/AdvReac Type Severity Reaction Status Date / Time No Known Allergies Allergy Verified 08/01/20 11:53 ED Review of Systems ROS: Stated complaint: INFLAMMATION Other details as noted in HPI Constitutional: denies: chills, fever Eyes: denies: eye pain, eye discharge, vision change ENT: denies: ear pain, throat pain Respiratory: denies: cough, shortness of breath, wheezing Cardiovascular: denies: chest pain, palpitations Endocrine: no symptoms reported Gastrointestinal: denies: abdominal pain, nausea, diarrhea Genitourinary: denies: urgency, dysuria Musculoskeletal: denies: back pain, joint swelling, arthralgia Skin: denies: rash, lesions Neurological: denies: headache, weakness, paresthesias Psychiatric: denies: anxiety, depression Hematological/Lymphatic: denies: easy bleeding, easy bruising ED Past Medical Hx - Past Medical History Previous Medical History?: Yes Hx Hypertension: Yes Hx CVA: No Hx Heart Attack/AMI: No Hx Congestive Heart Failure: No Hx Diabetes: Yes Hx Deep Vein Thrombosis: No Hx Pulmonary Embolism: No Hx GERD: No Hx Liver Disease: No Hx Renal Disease: No Hx Sickle Cell Disease: No Hx Arthritis: No Hx Headaches / Migraines: No Hx Seizures: No Hx Kidney Stones: No Hx Psychiatric Treatment: No Hx Asthma: No Hx COPD: No Hx Tuberculosis: No Hx Dementia: No Hx HIV: No - Surgical History Past Surgical History?: Yes Hx Pacemaker: No Hx Internal Defibrillator: No Additional Surgical History: RT foot - Social History Smoking Status: Current Every Day Smoker Substance Use Type: None - Medications Home Medications: Home Medications Medication Instructions Recorded Confirmed Last Taken Type Amlodipine Besylate [Norvasc] 5 mg PO DAILY #30 tablet 07/20/20 Unknown Rx Insulin NPH Hum/Reg Insulin Hm 13 unit SQ BID 30 Days #1 vial 07/20/20 Unknown Rx [Relion Novolin 70-30 Vial] Syring W-Ndl,Disp,Insul,0.5 ml 1 each MC BID #100 disp.syrin 07/20/20 Unknown Rx [Ultra Comfort] amLODIPine 10 mg PO DAILY #30 tablet 07/20/20 Unknown Rx lisinopriL [Zestril TAB] 20 mg PO QDAY #30 tablet 07/20/20 Unknown Rx ED Physical Exam - General Limitations: No Limitations General appearance: alert, in no apparent distress - Head Head exam: Present: atraumatic, normocephalic - Eye Eye exam: Present: normal appearance - ENT ENT exam: Present: mucous membranes moist - Neck Neck exam: Present: normal inspection - Respiratory Respiratory exam: Present: normal lung sounds bilaterally. Absent: respiratory distress - Cardiovascular Cardiovascular Exam: Present: regular rate, normal rhythm. Absent: systolic murmur, diastolic murmur, rubs, gallop - GI/Abdominal GI/Abdominal exam: Present: soft, normal bowel sounds - Rectal Rectal exam: Present: deferred - Extremities Exam Extremities exam: Present: normal inspection, pedal edema - Back Exam Back exam: Present: normal inspection - Neurological Exam Neurological exam: Present: alert, oriented X3 - Psychiatric Psychiatric exam: Present: normal affect, normal mood - Skin Skin exam: Present: warm, dry, intact, normal color. Absent: rash ED Course Vital Signs 10/03/21 10/03/21 10/03/21 05:46 07:55 08:00 Temperature 98.3 F Pulse Rate 89 89 88 Respiratory 20 26 H 38 H Rate Blood Pressure 177/106 Blood Pressure 151/91 [Right] O2 Sat by Pulse 98 92 93 Oximetry 10/03/21 10/03/21 10/03/21 08:02 08:16 08:30 Temperature Pulse Rate 89 84 89 Respiratory 33 H 31 H 37 H Rate Blood Pressure 173/102 165/107 Blood Pressure [Right] O2 Sat by Pulse 95 94 93 Oximetry 10/03/21 10/03/21 10/03/21 08:46 09:00 09:36 Temperature Pulse Rate 86 85 90 Respiratory 13 13 Rate Blood Pressure 171/101 171/101 171/101 Blood Pressure [Right] O2 Sat by Pulse 100 100 Oximetry 10/03/21 10/03/21 10/03/21 09:46 10:00 10:23 Temperature Pulse Rate 83 85 86 Respiratory 36 H 23 Rate Blood Pressure 171/101 171/101 171/101 Blood Pressure [Right] O2 Sat by Pulse 94 94 Oximetry 10/03/21 10/03/21 10/03/21 10:30 10:46 11:00 Temperature Pulse Rate 82 82 77 Respiratory 28 H 29 H 29 H Rate Blood Pressure 182/109 174/105 171/101 Blood Pressure [Right] O2 Sat by Pulse 95 94 92 Oximetry 10/03/21 10/03/21 10/03/21 11:16 11:30 11:46 Temperature Pulse Rate 82 78 81 Respiratory 31 H 24 27 H Rate Blood Pressure 165/99 162/97 166/102 Blood Pressure [Right] O2 Sat by Pulse 92 93 91 Oximetry 10/03/21 10/03/21 12:00 12:16 Temperature Pulse Rate 80 88 Respiratory 30 H 23 Rate Blood Pressure 165/100 169/95 Blood Pressure [Right] O2 Sat by Pulse 91 88 Oximetry ED Medical Decision Making - Lab Data Result diagrams: 10/03/21 05:56 10/03/21 05:56 - EKG Data -: EKG Interpreted by Me EKG shows normal: sinus rhythm Rate: normal - EKG Data When compared to previous EKG there are: no significant change - Radiology Data Radiology results: report reviewed, image reviewed - Medical Decision Making work up showed CHF , lasix 60 mg given BP controlled , will refer t cardiology for CHF work up Critical care attestation.: If time is entered above; I have spent that time in minutes in the direct care of this critically ill patient, excluding procedure time. ED Disposition Clinical Impression: SOB (shortness of breath), New onset of congestive heart failure, Elevated troponin Disposition: 01 HOME / SELF CARE / HOMELESS Is pt being admited?: No Does the pt Need Aspirin: No Condition: Stable Instructions: Heart Failure Medicines, Shortness of Breath, Adult, [id number] Referrals: PRIMARY CARE, [Primary Care Provider] - 3-5 Days SALUD VILLEGSA MD [Staff Physician] - 3-5 Days
[2021-10-03 14:40] VITALS: BP 170/99
--- NOTE | 2021-10-03 16:13 | Electrocardiograph Report ---
[facility] Test Date: 2021-10-03 Test Time: 05:52:27 Pat Name: CHALINO SARGENT Department: Room: Gender: M Chief Inspector: JENNIFER Padgett : 1980 Requested By: CAMERON TOSCANO Order Number: [id number] Reading MD: Js Welsh Measurements Intervals [place] Rate: 91 P: 57 DE: 177 QRS: 42 QRSD: 91 T: 106 QT: 389 QTc: 477 Interpretive Statements Sinus rhythm Left atrial enlargement Probable LVH with secondary repol abnrm No previous ECG available for comparison Electronically Signed On 10-03-2021 16:12:27 EDT by Js Welsh
== END 2021-10-03 14:42 | disposition home or self-care (01) ==
LOC: ED 05:37
DX: I11.0 Hypertensive heart disease with heart failure (principal); I50.9 Heart failure, unspecified; E11.9 Type 2 diabetes mellitus without complications; R74.8 Abnormal levels of other serum enzymes; F17.200 Nicotine dependence, unspecified, uncomplicated; Z79.899 Other long term (current) drug therapy
CPT/HCPCS: 36415; 71046; 71275; 80053; 80061; 80307; 81001; 82550; 82553; 83690; 83735; 83880; 84484; 85025; 85379; 85610; 93005; 93970; 94640; 96374; 96376; 99284; J1940; Q9967

== ENCOUNTER 2021-10-10 08:00 | Emergency (ER) | payer SELFPAY ==
--- NOTE | 2021-10-10 08:11 | Emergency Department Report ---
Blank Doc - Documentation Documentation: 41-year-old male that presents with bilateral legs swelling with Hx of CHF. S ays now also has scrotum swelling as well which first started from legs. 1- This is a initial triage assessment/medical screening only. Full assessment and work-up will be completed once the patient is in proper hospital gown, ED bed and in a private room setting. This initial assessment/diagnostic orders/clinical plan/ treatment(s) is/are subject to change based on pt's health status, clinical progression and re-assessment by fellow clinical providers in the ED. Further treatment and workup at subsequent clinical providers discretion. Patient/guardians urged not to elope from ED as their condition may be serious if not clinically assessed and managed. 2-cardiac workup The patient was evaluated in the emergency department for symptoms described in the history of present illness. He/she was evaluated in the context of the global COVID-19 pandemic, which necessitated consideration that the patient might be at risk for infection with the virus that causes COVID-19. Institutional protocols and algorithms that pertain to the evaluation of patients at risk for COVID-19 are in a state of rapid change based on information released by regulatory bodies including the CDC and federal and state organizations. These policies and algorithms were followed during the patient's care in the emergency department. Please note that these policies, procedures and recommendations changed on a rapid basis.
--- NOTE | 2021-10-10 08:46 | XRay Report ---
CHEST 2 VIEWS INDICATION / CLINICAL INFORMATION: Chest Pain. COMPARISON: 10/03/2021 FINDINGS: SUPPORT DEVICES: None. HEART / MEDIASTINUM: No significant abnormality. LUNGS / PLEURA: Mild pulmonary venous congestion and small pleural effusions have resolved. The lungs are generally clear. No pneumothorax. ADDITIONAL FINDINGS: No significant additional findings. IMPRESSION: No acute findings. Signer Name: Avila Brewer Jr, MD Signed: 10/10/2021 8:42 AM Workstation Name: [id number]
[2021-10-10 09:16] LABS: INR 0.96 (0.87-1.13)
[2021-10-10 09:17] LABS: Partial Thromboplastin Time 33.3 Sec. (24.2-36.6)
[2021-10-10 09:18] LABS: Basophils % (Auto) 0.6 % (0.0-1.8); Eosinophils # (Auto) 0.1 K/mm3 (0.0-0.4); Eosinophils % (Auto) 2.1 % (0.0-4.3); Hematocrit 23.1 % (35.5-45.6); Hemoglobin 7.5 gm/dl (11.8-15.2); Lymphocytes # (Auto) 1.5 K/mm3 (1.2-5.4); Lymphocytes % (Auto) 27.9 % (13.4-35.0); Mean Corpuscular HGB Conc 33 % (32-34); Mean Corpuscular Volume 85 fl (84-94); Monocytes # (Auto) 0.4 K/mm3 (0.0-0.8); Monocytes % (Auto) 6.6 % (0.0-7.3); Platelet Count 285 K/mm3 (140-440); Red Blood Count 2.71 M/mm3 (3.65-5.03)
[2021-10-10 09:35] LABS: Alanine Aminotransferase 81 units/L (7-56); Albumin 3.3 g/dL (3.9-5); BUN/Creatinine Ratio 11; Blood Urea Nitrogen 28 mg/dL (9-20); Calcium 8.7 mg/dL (8.4-10.2); Hemolysis Index 2
[2021-10-11] MEDS ORDERED: FUROSEMIDE 40 MG/4 ML INJ IV ONE (08:04)
--- NOTE | 2021-10-11 08:09 | Emergency Department Report ---
ED General Adult HPI - General Chief complaint: Extremity Problem,Nontraumatic Stated complaint: SWOLLEN GROIN Time Seen by Provider: 10/10/21 08:09 Source: patient Mode of arrival: Ambulatory Limitations: No Limitations - History of Present Illness Initial comments: Patient is a 41-year-old male with recently diagnosed CHF returning to emergency department with complaint of continued swelling in his legs now with swelling in his scrotum. States he was seen here roughly a week ago for his leg swelling and was discharged home on Lasix which he has been taking however states the swelling is not improving. He denies any shortness of breath or chest pain. Severity scale (0 -10): 0 - Related Data Previous Rx's Medication Instructions Recorded Last Taken Type Amlodipine Besylate [Norvasc] 5 mg PO DAILY #30 tablet 07/20/20 Unknown Rx Insulin NPH Hum/Reg Insulin Hm 13 unit SQ BID 30 Days #1 vial 07/20/20 Unknown Rx [Relion Novolin 70-30 Vial] Syring W-Ndl,Disp,Insul,0.5 ml 1 each MC BID #100 disp.syrin 07/20/20 Unknown Rx [Ultra Comfort] amLODIPine 10 mg PO DAILY #30 tablet 07/20/20 Unknown Rx lisinopriL [Zestril TAB] 20 mg PO QDAY #30 tablet 07/20/20 Unknown Rx Furosemide [Lasix TAB] 40 mg PO QDAY #30 tablet 10/03/21 Unknown Rx carvediloL [Coreg] 12.5 mg PO BID #60 tablet 10/03/21 Unknown Rx lisinopriL [Zestril TAB] 20 mg PO QDAY #30 tablet 10/03/21 Unknown Rx Allergies Allergy/AdvReac Type Severity Reaction Status Date / Time No Known Allergies Allergy Verified 08/01/20 11:53 ED Review of Systems ROS: Stated complaint: SWOLLEN GROIN Other details as noted in HPI Constitutional: denies: chills, fever Respiratory: denies: cough, shortness of breath, wheezing Cardiovascular: edema. denies: chest pain, palpitations Gastrointestinal: denies: abdominal pain, nausea, diarrhea Genitourinary: denies: urgency, dysuria Musculoskeletal: denies: back pain, joint swelling, arthralgia Skin: denies: rash, lesions Neurological: denies: headache, weakness, paresthesias Psychiatric: denies: anxiety, depression ED Past Medical Hx - Past Medical History Hx Hypertension: Yes Hx CVA: No Hx Heart Attack/AMI: No Hx Congestive Heart Failure: Yes Hx Diabetes: Yes Hx Deep Vein Thrombosis: No Hx Pulmonary Embolism: No Hx GERD: No Hx Liver Disease: No Hx Renal Disease: No Hx Sickle Cell Disease: No Hx Arthritis: No Hx Headaches / Migraines: No Hx Seizures: No Hx Kidney Stones: No Hx Psychiatric Treatment: No Hx Asthma: No Hx COPD: No Hx Tuberculosis: No Hx Dementia: No Hx HIV: No - Surgical History Hx Pacemaker: No Hx Internal Defibrillator: No Additional Surgical History: RT foot - Social History Smoking Status: Current Every Day Smoker - Medications Home Medications: Home Medications Medication Instructions Recorded Confirmed Last Taken Type Amlodipine Besylate [Norvasc] 5 mg PO DAILY #30 tablet 07/20/20 Unknown Rx Insulin NPH Hum/Reg Insulin Hm 13 unit SQ BID 30 Days #1 vial 07/20/20 Unknown Rx [Relion Novolin 70-30 Vial] Syring W-Ndl,Disp,Insul,0.5 ml 1 each MC BID #100 disp.syrin 07/20/20 Unknown Rx [Ultra Comfort] amLODIPine 10 mg PO DAILY #30 tablet 07/20/20 Unknown Rx lisinopriL [Zestril TAB] 20 mg PO QDAY #30 tablet 07/20/20 Unknown Rx Furosemide [Lasix TAB] 40 mg PO QDAY #30 tablet 10/03/21 Unknown Rx carvediloL [Coreg] 12.5 mg PO BID #60 tablet 10/03/21 Unknown Rx lisinopriL [Zestril TAB] 20 mg PO QDAY #30 tablet 10/03/21 Unknown Rx ED Physical Exam - General Limitations: No Limitations General appearance: alert, in no apparent distress - Head Head exam: Present: atraumatic, normocephalic - Neck Neck exam: Present: normal inspection - Respiratory Respiratory exam: Present: normal lung sounds bilaterally. Absent: respiratory distress - Cardiovascular Cardiovascular Exam: Present: regular rate, normal rhythm, normal heart sounds - GI/Abdominal GI/Abdominal exam: Present: soft. Absent: distended, tenderness - exam: Present: scrotal swelling. Absent: testicular tenderness External exam: Present: swelling (Significant scrotal edema without tenderness) - Extremities Exam Extremities exam: Present: pedal edema (Pitting edema to both legs) - Neurological Exam Neurological exam: Present: alert, oriented X3 - Psychiatric Psychiatric exam: Present: normal affect, normal mood - Skin Skin exam: Present: warm, dry, intact, normal color ED Course Vital Signs 10/10/21 10/10/21 10/11/21 08:14 23:32 08:46 Temperature 98.2 F 98.7 F Pulse Rate 74 91 H 75 Respiratory 14 18 14 Rate Blood Pressure Blood Pressure 147/81 165/88 [Right] O2 Sat by Pulse 100 99 97 Oximetry 10/11/21 10/11/21 10/11/21 09:00 09:16 09:30 Temperature Pulse Rate 71 69 68 Respiratory 24 19 20 Rate Blood Pressure 164/94 163/93 165/91 Blood Pressure [Right] O2 Sat by Pulse 98 94 97 Oximetry 10/11/21 10:51 Temperature Pulse Rate Respiratory Rate Blood Pressure Blood Pressure [Right] O2 Sat by Pulse 98 Oximetry ED Medical Decision Making - Lab Data Result diagrams: 10/10/21 08:26 10/10/21 08:26 - EKG Data -: EKG Interpreted by Me EKG shows normal: sinus rhythm, axis, intervals, QRS complexes Rate: normal - EKG Data 10/11/21 08:42 Left atrial enlargement - Medical Decision Making Patient presenting with complaint of lower extremity edema along with new onset scrotal edema despite taking his Lasix. Labs reviewed. Troponin chronically elevated at baseline. Interval increase in BNP however chest x-ray is without edema and he denies any dyspnea. He was given 40 mg of IV Lasix here with good response. He currently takes 40 mg p.o. daily. I suggested to take his Lasix twice daily for the next few days and to follow-up with his PCP at his earliest convenience. Critical care attestation.: If time is entered above; I have spent that time in minutes in the direct care of this critically ill patient, excluding procedure time. ED Disposition Clinical Impression: Edema, peripheral, Scrotal edema Disposition: 01 HOME / SELF CARE / HOMELESS Is pt being admited?: No Condition: Stable Instructions: Edema, Peripheral Edema Additional Instructions: Please follow-up with your primary doctor at your earliest convenience. You may return if your symptoms worsen. Time of Disposition: 13:26
--- NOTE | 2021-10-11 08:26 | Electrocardiograph Report ---
[facility] Test Date: 2021-10-10 Test Time: 08:18:59 Pat Name: CHALINO SARGENT Department: Room: Gender: M [employer] Supervisor: NADER : 1980 Requested By: JUDE PATTON Order Number: [id number] Reading MD: Mikie Price Measurements Intervals [place] Rate: 69 P: 58 MS: 190 QRS: 0 QRSD: 103 T: QT: 406 QTc: 437 Interpretive Statements Sinus rhythm Left atrial enlargement nonspecific st-t Compared to ECG 10/03/2021 05:52:27 Electronically Signed On 10-11-2021 8:26:41 EDT by Mikie Price
[2021-10-11 09:46] VITALS: BP 165/91
[2021-10-11 11:00] LABS: Color,Urine Straw (Yellow)
--- NOTE | 2021-10-11 11:11 | XRay Report ---
CHEST 1 VIEW 10/11/2021 10:54 AM INDICATION / CLINICAL INFORMATION: sob. COMPARISON: 10/10/2021 FINDINGS: SUPPORT DEVICES: None. HEART / MEDIASTINUM: Heart size appears borderline to mildly increased. Heart is slightly more promin ent on yesterday's examination which may be secondary to AP technique. LUNGS / PLEURA: Mild central pulmonary congestion is suspected. No evidence for infiltrate, pleural e ffusion or pneumothorax. ADDITIONAL FINDINGS: No significant additional findings. IMPRESSION: 1. Borderline to mild cardiomegaly and pulmonary venous congestion but no CHF. Signer Name: Avila Brewer Jr, MD Signed: 10/11/2021 11:07 AM Workstation Name: [id number]
== END 2021-10-11 14:44 | disposition home or self-care (01) ==
LOC: ED 08:00
DX: N50.89 Other specified disorders of the male genital organs (principal); M79.89 Other specified soft tissue disorders; I10 Essential (primary) hypertension; E11.9 Type 2 diabetes mellitus without complications; F17.200 Nicotine dependence, unspecified, uncomplicated
CPT/HCPCS: 36415; 71045; 71046; 80053; 81001; 83880; 84484; 85025; 85610; 85730; 93005; 96374; 99284; J1940